=== PATIENT | female | born 1960 | race Caucasian/White ===

== ENCOUNTER 2025-02-11 09:32 | Outpatient (OUT) | payer MEDICARE, SELFPAY ==
--- NOTE | 2025-02-11 10:00 | CA_ITS ---
Patient Name: NITZA SUN MR#: [id number] : 1960 Exam Date: 02/11/2025 Ordering Doctor: DR. JODEE ELAINE M.D. ECHOCARDIOGRAM REPORT PROCEDURE: CA ECHO DOPPLER COMPLETE INDICATIONS: Diastolic congestive heart failure, atrial fibrillation, COPD, hypertension COMPARISON: None. DESCRIPTION: COMPLETE ECHOCARDIOGRAM Real-time transthoracic echocardiography with 2D, M-mode, spectral and color flow Doppler performed. QUALITY: Technical quality was adequate. LEFT VENTRICLE: Normal chamber size. Normal left ventricular wall thickness. LV EF: Global left ventricular systolic function is normal; visually estimated ejection fraction is 55 to 60%. Unable to assess regional wall motion abnormalities. DIASTOLIC: Not adequately assessed due to heart rhythm. ATRIAL SEPTUM: Inadequately seen. LEFT ATRIUM: Severe dilatation. RIGHT ATRIUM: Severe dilatation. RIGHT VENTRICLE: Mild dilatation. Decreased right ventricular systolic function. TRICUSPID VALVE: Normal mobility and thickness. No stenosis with mild regurgitation. Doppler studies reveal mildly (35-45) elevated right sided pressures. RVSP 43 mmHg MITRAL VALVE: Normal mobility and thickness. No evidence of mitral valve stenosis. There is no mitral annular calcification. Trivial mitral regurgitation. AORTIC VALVE: Normal trileaflet appearance. Mildly calcified aortic valve. Normal leaflet mobility. No evidence of aortic valve stenosis. No aortic regurgitation. AORTIC ROOT: Normal diameter and appearance. Ascending aorta is normal in size. PULMONIC VALVE: Normal thickness and mobility. No stenosis. Trivial regurgitation. PERICARDIUM: Anterior free space; trivial effusion versus fat pad. IVC: IVC is dilated (2.4 cm), does not collapse. CONCLUSION: 1. Global left ventricular systolic function is normal; visually estimated ejection fraction is 55 to 60% 2. The right ventricle is mildly dilated with reduced systolic function 3. Severe biatrial dilatation 4. Mild tricuspid regurgitation 5. Mildly elevated right ventricular systolic pressure; RVSP 43 mmHg 6. Anterior free space; trivial effusion versus fat pad Adult Echocardiography Procedure Report Left Ventricle LVEDD (3.7 - 5.6 cm): 4.42 cm LVESD (2.2 - 4.0 cm): 3.29 cm LVIVS thickness (0.6 - 1.2 cm): 0.89 cm LVPW thickness (0.5 - 1.0 cm): 1.03 cm LVOT Max Gradient: 1.77 mm[Hg] LVOT Area (cm2): 0.66 m/s Peak Velocity (LVOT): 0.66 m/s LVOT Diameter 2.07 cm Left Atrium LA Volume Index (2D A2C): 83.77 ml/m2 Left Atrium Systolic Dimension: 3.70 cm Mitral Valve Mitral Valve E-Wave Peak Velocity: 0.87 m/s Right Ventricle Aorta AO Root Diam: 2.71 cm Ascending Ao Diam: 2.68 cm Aortic Valve AoV Area (Peak Igor): 2.19 cm2, 2.19 cm2 Peak Velocity(Antegrade Flow): 1.02 m/s Peak Gradient(Antegrade Flow): 4.19 mm[Hg] Tricuspid Valve Peak Velocity (Regurgitant Flow): 2.25 m/s, 2.65 m/s, 3.00 m/s Pulmonic Valve Peak Velocity: 1.08 m/s Peak Gradient: 5.42 mm[Hg], 5.42 mm[Hg], 3.81 mm[Hg], 4.17 mm[Hg] Right Atrium Right Atrium Systolic Pressure: 83.51 ml, 83.51 ml Dictated by: Mark Moreno M.D. on 02/12/2025 at 15:04 Approved by: Mark Moreno M.D. on 02/12/2025 at 15:07
== END 2025-02-11 09:33 | disposition home or self-care (01) ==
LOC: CARD 09:33
PROVIDERS: PCP Family Medicine; Visit Provider Internal Medicine Cardiovascular Disease
DX: R94.31 Abnormal electrocardiogram [ECG] [EKG] (principal); I48.91 Unspecified atrial fibrillation; I50.32 Chronic diastolic (congestive) heart failure
CPT/HCPCS: 93306

== ENCOUNTER 2025-09-10 11:03 | Outpatient (OUT) | payer MEDICARE, SELFPAY ==
--- OUTSIDE RECORDS SUMMARY | 2025-09-10 11:11 | XMS_ITS | CCD ---
Author Organization [facility] Care Team Providers Care Patient Liaison Name Role Phone MELISSA HALL Attending Unavailab le BEE, COREY BRUNO Referring Unavailable RAFAELMELISSA Dunn Attending Unavailab le BEE, COREY BRUNO Referring Unavailable SESEJAME Attending Unavailable JAME WORLEY Referring Unavailable BEECOREY CALL Primary Care Physician Lillian Lemons Unavailable Unavailable Corey Gamboa MISC, DR CISNEROS Admitting Unavailable MISC, DR CISNEROS Attending Unavailable BEE, DR COREY Delgado Primary Care Unavailable MISC, DR CISNEROS Admitting Unavailable MISC, DR CISNEROS Attending Unavailable BEE, DR COREY Delgado Primary Care Unavailable BEE, DR COREY Delgado Admitting Unavailable BEE, DR COREY Delgado Primary Care Unavailable BEE, DR COREY Delgado Attending Unavailable Bee, DO Corey Delgado. Primary Care Provider MD Jarocho Rice Attending Provider DO Corey Gamboa Attending Provider NONE, XXXX Referring Unavailable MD Sundar Salazar Admitting Unavailable MD Sundar Salazar Attending Unavailable Henrique Madera Attending Unavaila ble NONE, XXXX Referring Unavailable Henrique Madera Admitting Unavaila ble Jayda Perez Admitting Unavailable JustJayda daley Attending Unavailable JustiJayda Referring Unavailable Justi, ACNP Jayda Referring Unavailable Justi, ACNP Jayda Attending Unavailable Justi ACNP Jayda Admitting Unavailable JustiSigridJayda Referring Unavailable JustJayda daley Attending Unavailable Jarocho Rice Attending Unavailab Jraocho Delarosa Admitting Unavailab le Corey Gamboa Primary Care Unavailable Corey Gamboa DO Primary Care Provider Jarocho Rice MD Attending Provider [phone] Corey Gamboa DO Primary Care Provider Corey Gamboa DO Attending Provider Juni Ga Attending Unavailable Juni Ga Admitting Unavailable NONE, XXXX Referring Unavailable Juni Ga Admitting Unavailable NONE, XXXX Referring Unavailable Juni Ga Attending Unavailable Jayda Perez Referring Unavailable Jayda Perez Attending Unavailable Medications Current Medications Medication Drug Class(es) Dates Sig (Normalized) Sig (Original) 8 hr acetaminophen 650 mg extended release oral tablet (3 sources) Start: 03-07-2024 Acetaminophen (Tylenol 8 Hour) 650 mg tablet extended release Active 1300 MG PO Every 8 hours as needed March 07, 2024 12:00am Complies with drug therapy [id number] 200 actuat albuterol 0.09 mg/actuat metered dose inhaler (17 sources) beta2-Adrenergic Agonist Start: 09-22-2024 End: 09-22-2024 take 1 puff(s) by inhalation every four hours as needed for wheezing Albuterol Sulfate 90 mcg/actuation HFA aerosol inhaler Active 2 PUFF INHALATION Every 4 hours as needed for shortness of breath or wheezing 25.5 90 September 22, 2024 2:04pm Complies with drug therapy Start: 02-28-2024 End: 09-22-2024 take 2 puff(s) by inhalation every four hours as needed Albuterol Sulfate 90 mcg/actuation HFA aerosol inhaler Discontinued 2 PUFF INHALATION Every 4 hours February 28, 2024 12:00am September 22, 2024 2:04pm FreeTextSi puffs as needed Inhalation every 4 hrs; Note: Source Status: Refill; Refills: 1; Provider: Bee Delgado Start: 08-02-2016 take 2 puff(s) by in halation every four hours as needed Albuterol Sulfate HFA 108 (90 Base) MCG/ACT 2 puffs as needed Inhalation every 4 hrs for 90 days Jul, Active Start: 08-02-2016 take 2 puff(s) by in halation every four hours as needed Albuterol Sulfate HFA 108 (90 Base) MCG/ACT 2 puffs as needed Inhalation every 4 hrs for 90 days Jul, Active apixaban 5 mg oral tablet (1 source) Factor Xa Inhibitor Start: 09-03-2025 take 1 tablet by mouth once Apixaban (Eliquis) 5 mg tablet Active 5 MG PO Once September 03, 2025 12:00am Complies with drug therapy 120 actuat budesonide 0.16 mg/actuat / formoterol fumarate 0.0045 mg/actuat metered dose inhaler (18 sources) Corticosteroid, beta2-Adrenergic Agonist Start: 09-22-2024 End: 09-22-2024 take 1 puff(s) by inhalation once daily Budesonide-Formot rohan (Symbicort) 160-4.5 mcg/actuation HFA aerosol inhaler Active 2 PUFF INHALATION Daily 30.6 90 September 22, 2024 2:05pm Complies with drug therapy Start: 03-07-2024 End: 09-22-2024 take 1 puff(s) by inhalation once Budesonide-Formoterol (Symbicort) 160-4.5 mcg/actuation HFA aerosol inhaler Discontinued 2 PUFF INHALATION Once March 07, 2024 11:20am September 22, 2024 2:05pm Start: 02-28-2024 End: 03-07-2024 take 1 puff(s) by inhalation twice daily Budesonide-Formoterol (Symbicort) 160-4.5 mcg/actuation HFA aerosol inhaler Discontinued 2 PUFF INHALATION Twice daily February 28, 2024 12:00am March 07, 2024 11:26am Start: 09-13-2022 take 2 puff(s) by in halation twice daily Symbicort 160-4.5 MCG/ACT 2 puffs Inhalation Twice a day for 90 days Aug, Active 24 hr dilTIAZem hydrochloride 120 mg extended release oral capsule (8 sources) Calcium Channel Luana Start: 03-13-2024 diltiazem CD 120 mg/ 24 hours Cap-ER 120 mg = 1 cap(s), Oral, Daily, # 90 cap(s), Refills(s) 3, Pharmacy: [facility], 160, cm, 10/26/23 13:51:00 EST, Height/Length Dosing, 134, kg, 10/26/23 13:51:00 EST, Weight Dosing Start Date: 03/13/24 Status: Ordered Start: 03-07-2024 take 1 capsule by [facility] every twenty-four hours Diltiazem Hcl 120 mg capsule,extended release 24hr Active 120 MG PO March 07, 2024 12:00am Complies with drug therapy Start: 03-07-2024 take 1 capsule by [facility] every twenty-four hours Diltiazem Hcl 120 mg capsule,extended release 24hr Active 120 MG PO March 07, 2024 12:00am Start: 03-07-2024 Diltiazem Hcl Active 120 MG PO March 07, 2024 12:00am Start: 04-24-2023 diltiazem CD 1 20 mg/24 hours Cap-ER 120 mg = 1 cap(s), Oral, Daily, # 90 cap(s), Refills(s) 3, Pharmacy: [facility], 160, cm, 04/11/23 15:37:00 EDT, Height/Length Dosing, 137, kg, 10/18/22 12:02:00 EST, Weight Dosing Start Date: 04/24/23 Status: Ordered escitalopram 20 mg oral tablet (20 sources) Serotonin Reuptake Inhibitor Start: 02-28-2024 End: 06-15-2025 take 1 tablet by mouth once daily Escitalopram Oxalate 20 mg tablet Active 20 MG PO Daily 90 90 June 15, 2025 10:51am Complies with drug therapy Start: 05-12-2019 take 1 tablet by mouth once da nicolasa Lexapro 10 mg Tab 10 mg = 1 tab(s), Oral, Daily Start Date: 05/12/19 Status: Ordered Start: 12-18-2018 take 1 tablet by [facility] every twenty-four hours Lexapro 20 MG 1 tablet Orally Once a day for 90 day(s) Nov, Active ferrous sulfate 325 mg delayed release oral tablet (2 sources) Start: 03-20-2024 take 1 tablet by mouth twice daily Ferrous Sulfate 325 mg (65 mg iron) tablet,delayed release (DR/EC) Active 325 MG PO Twice daily 180 90 March 20, 2024 12:00am Complies with drug therapy Flonase 0.05 mg/inh nasal spray (7 sources) Start: 10-19-2017 Flonase 0.05 m g/inh nasal spray 2 spray(s), Nasal, Daily, Refill(s) 0 Start Date: 10/19/17 Status: Ordered fluticasone propionate 0.05 mg/actuat metered dose nasal spray (16 sources) Corticosteroid Start: 02-28-2024 Fluticasone Propionate 50 mcg/actuation spray,suspension Active 2 SPRAY INTRANASAL Daily as needed February 28, 2024 12:00am Complies with drug therapy Start: 10-19-2017 Flonase 0.05 m g/inh nasal spray 2 spray(s), Nasal, Daily, Refill(s) 0 Start Date: 10/19/17 Status: Ordered Start: 10-08-2017 take 2 spray(s) nasa l route once daily as needed Fluticasone Propionate 50 MCG/ACT 2 spray Nasally Once a day prn for 30 day(s) Sep, Active hydroCHLOROthiazide 12.5 mg oral tablet (20 sources) Thiazide Diuretic Start: 02-28-2024 End: 04-06-2025 take 1 tablet by mouth once daily Hydrochlorothiazide 12.5 mg tablet Active 12.5 MG PO Daily 90 April 06, 2025 2:23pm Complies with drug therapy Start: 10-20-2017 take 1 capsule by mo [facility] once daily hydrochlorothiazide 12.5 mg Cap 12.5 mg = 1 cap(s), Oral, Daily, Refills(s) 0 Start Date: 10/20/17 Status: Ordered Start: 08-03-2014 take 1 tablet by crescencio every twenty-four hours hydroCHLOROthiazide 12.5 MG 1 tablet in the morning Orally Once a day for 90 day(s) Jul, Active 24 hr metoprolol succinate 100 mg extended release oral tablet (20 sources) beta-Adrenergic Luana Start: 09-03-2025 take 1 tablet by mouth every twenty-four hours Metoprolol Succinate 100 mg tablet extended release 24 hr Active 100 MG PO September 03, 2025 12:00am Complies with drug therapy Start: 06-30-2024 take 1 tablet by crescencio th twice daily metoprolol succinate 100 mg ER Tab 100 mg = 1 tab(s), Oral, BID, # 180 tab(s), Refills(s) 3, Pharmacy: [facility], 160, cm, 04/25/24 14:23:00 EDT, Height/Length Dosing, 134, kg, 10/26/23 13:51:00 EST, Weight Dosing Start Date: 06/30/24 Status: Ordered Start: 03-07-2024 End: 09-03-2025 take 1 tablet by mouth twice daily Metoprolol Tartrate 100 mg tablet Discontinued 100 MG PO Twice daily March 07, 2024 11:22am September 03, 2025 1:30pm Start: 02-28-2024 End: 03-07-2024 take 1 tablet by mouth once daily Metoprolol Tartrate 100 mg tablet Discontinued 100 MG PO Daily February 28, 2024 12:00am March 07, 2024 11:26am Start: 06-12-2023 End: 06-06-2024 take 1 tablet by mouth twice daily Toprol XL 100 mg Tab-ER 100 mg = 1 tab(s), Oral, BID, X 90 day(s), # 180 tab(s), Refills(s) 3, Pharmacy: [facility], 160, cm, 04/11/23 15:37:00 EDT, Height/Length Dosing, 137, kg, 10/18/22 12:02:00 EST, Weight Dosing Start Date: 06/12/23 Stop Date: 06/06/24 Status: Ordered Start: 11-11-2021 End: 11-06-2022 take 1 tablet by mouth twice daily Toprol XL 100 mg Tab-ER 100 mg = 1 tab(s), Oral, BID, # 60 tab(s), Refills(s) 0, Pharmacy: [id number], 160, cm, 04/14/22 13:30:00 EDT, Height/Length Dosing, 137, kg, 04/14/22 13:30:00 EDT, Weight Dosing Start Date: 06/12/22 Status: Ordered take 1 tablet by crescencio twice daily at mealtime Metoprolol Tartrate 100 MG 1 tablet with food Orally Twice daily Active Metoprolol Tartr ate 100 MG 1 tablet with food QAM Orally Twice daily Active omeprazole 40 mg delayed release oral capsule (20 sources) Proton Pump Inhibitor Start: 02-28-2024 End: 04-06-2025 take 1 capsule by mouth twice daily Omeprazole 40 mg capsule,delayed release(DR/EC) Active 40 MG PO Twice daily 180 90 April 06, 2025 2:23pm Complies with drug therapy Start: 10-20-2017 take 1 capsule by [facility] once daily omeprazole 40 mg Cap-DR 40 mg = 1 cap(s), Oral, Daily, # 30 cap(s), Refills(s) 0 Start Date: 10/20/17 Status: Ordered Start: 07-29-2014 take 1 capsule by [facility] twice daily Omeprazole 40 MG 1 capsule Orally twice daily for 90 day(s) Jul, Active omeprazole 40 mg Cap-DR (1 source) Start: 10-20-2017 take 1 capsule by mouth once daily omeprazole 40 mg Cap-DR 40 mg = 1 cap(s), Oral, Daily, # 30 cap(s), Refills(s) 0 Start Date: 10/20/17 Status: Ordered microencapsulated potassium chloride 20 meq extended release oral tablet (20 sources) Start: 03-07-2024 End: 04-06-2025 Potassium Chloride (Klor-Con M20) 20 mEq tablet,ER particles/crystals Active 20 MEQ PO Twice daily 180 90 April 06, 2025 2:22pm Complies with drug therapy Start: 02-28-2024 End: 03-07-2024 Potassium Chloride (Klor-Con M20) 20 mEq tablet,ER particles/crystals Discontinued 40 MEQ PO Daily February 28, 2024 12:00am March 07, 2024 11:26am Start: 11-20-2018 take 1 tablet by [facility] twice daily potassium chloride 20 mEq ER Tab 20 mEq = 1 tab(s), Oral, BID, Refills(s) 0 Start Date: 11/20/18 Status: Ordered take 2 tablets by [facility] every twenty-four hours Klor-Con M20 20 MEQ 2 tablet with food Orally Once a day for 90 day(s) Active rivaroxaban 20 mg oral tablet (2 sources) Factor Xa Inhibitor Start: 10-26-2023 take 1 tablet by mouth once daily in the evening Xarelto 20 mg oral tablet 20 mg, Oral, qPM, AFIB and CrCl over 50 mL/minute - Take with evening meal, # 90 tab(s), Refills(s) 1, Pharmacy: [facility], 160, cm, 10/26/23 13:51:00 EST, Height/Length Dosing, 134, kg, 10/26/23 13:51:00 EST, Weight Dosing Start Date: 10/26/23 Status: Ordered spironolactone 25 mg oral tablet (20 sources) Aldosterone Antagonist Start: 09-22-2024 take 0.5 tablet by mouth once daily spironolactone 25 mg Tab See Instructions, 0.5 tab by mouth daily, # 45 tab(s), Refills(s) 3, Pharmacy: [facility], 160, cm, 04/25/24 14:23:00 EDT, Height/Length Dosing, 134, kg, 10/26/23 13:51:00 EST, Weight Dosing Start Date: 09/22/24 Status: Ordered Start: 02-28-2024 Spironolactone 25 mg tablet Active 12.5 MG PO Daily February 28, 2024 12:00am Complies with drug therapy Start: 02-28-2024 take 12.5 mg by mout h once daily Spironolactone Active 12.5 MG PO Daily February 28, 2024 12:00am Start: 09-18-2023 End: 09-12-2024 take 0.5 tablet by mouth once daily spironolactone 25 mg Tab 0.5 tab, Oral, Daily, X 90 day(s), # 45 tab(s), Refills(s) 3, Pharmacy: [facility], 160, cm, 04/11/23 15:37:00 EDT, Height/Length Dosing, 137, kg, 10/18/22 12:02:00 EST, Weight Dosing Start Date: 09/18/23 Stop Date: 09/12/24 Status: Ordered Start: 11-11-2021 End: 06-07-2023 take 0.5 tablet by mouth once daily spironolactone 25 mg Tab 0.5 tab, Oral, Daily, 12.5 mg, X 90 day(s), # 90 tab(s), Refills(s) 3, Pharmacy: [facility] (Now [facility]), 160, cm, 04/14/22 13:30:00 EDT, Height/Length Dosing, 137, kg, 04/14/22 13:30:00 EDT, Weight Dosing Start Date: 06/12/22 Stop Date: 06/07/23 Status: Ordered Symbicort 160/4.5 inhalation aerosol with adapter (5 sources) Start: 10-26-2023 take 2 puff(s) by inhalation twice daily Symbicort 160/4.5 inhalation aerosol with adapter 2 puff(s), Inhalation, BID, Refill(s) 0 Start Date: 10/26/23 Status: Ordered Ventolin HFA 90 mcg/inh Aerosol (10 sources) Start: 12-25-2017 Ventolin HFA 9 0 mcg/inh Aerosol See Instructions, Refill(s) 0, 1 puff(s) Inhalation Start Date: 12/25/17 Status: Ordered warfarin sodium 2.5 mg oral tablet (20 sources) Vitamin K Antagonist Start: 03-07-2024 take 1 tablet by mouth once daily Warfarin 2.5 mg tablet Active 2.5 MG PO Daily March 07, 2024 12:00am Complies with drug therapy Start: 06-26-2023 End: 03-07-2024 take 1 tablet by mouth once daily, then take 0.5 tablet by mouth once daily Warfarin 5 mg tablet Discontinued 5 MG PO Daily February 28, 2024 12:00am March 07, 2024 11:25am 1 tablet Wed and sun, 1/2 tablet all other days Oral Once a day; Taking 2.5 mg mon, tu, th, sun sat, 5 mg sun and wed; Start: 12-14-2020 Coumadin 5 mg Tab See Instructions, take 2.5mg everyday, # 90 tab(s), Refills(s) 2, Pharmacy: [facility], 160, cm, 10/26/23 13:51:00 EST, Height/Length Dosing, 134, kg, 10/26/23 13:51:00 EST, Weight Dosing Start Date: 12/25/23 Status: Ordered Start: 05-12-2019 Coumadin Start Date: 05/12/19 Status: Ordered Warfarin Sodium 5 MG 1/2 tablet sun-thur 1 tablet fri-sun Oral Once a day for 30 days Active take 1 tablet by crescencio th every twenty-four hours Warfarin Sodium 2.5 MG 1 tablet Oral Once a day for 30 Active Completed/Discontinued Medications Medication Drug Class(es) Dates Sig (Normalized) Sig (Original) Adult Blood Pressure Machine with Large Bicep Cuff (10 sources) Start: 01-07-2020 Adult Blood Pressure Machine with Large Bicep Cuff Adult Blood Pressure Machine with Large Bicep Cuff, See Instructions, 1 EA, 0, Adult BP machine and large bicep cuff Follow daily BP readings and keep log, [facility], 160, cm, 12/23/19 11:18:00 EST, Height/Length Measured, 140, kg, 12/23/19 11:18:00 EST, Weight Measured Start Date: 01/07/20 Status: Ordered Start: 01-07-2020 Adult Blood Pr essure Machine with Large Bicep Cuff Adult Blood Pressure Machine with Large Bicep Cuff, See Instructions, 1 EA, 0, Adult BP machine and large bicep cuff Follow daily BP readings and keep log, [facility], Supply, 160, cm, 12/23/19 11:18:00 EST, Height/Length Measured, 140, kg... Start Date: 01/07/20 Status: Ordered busPIRone hydrochloride 30 mg oral tablet (20 sources) Start: 02-28-2024 End: 09-03-2024 take 1 tablet by mouth twice daily Buspirone 30 mg tablet Discontinued 30 MG PO Twice daily February 28, 2024 12:00am September 03, 2024 1:02pm Start: 12-03-2019 busPIRone 15 m g Tab Refills(s) 0 Start Date: 12/03/19 Status: Ordered take 1 tablet by crescencio every twelve hours busPIRone HCl 30 MG 1 tablet Orally Twice a day Active docusate sodium 100 mg oral capsule (13 sources) Start: 02-28-2024 End: 03-07-2024 take 1 capsule by mouth three times daily Docusate Sodium 100 mg capsule Discontinued 100 MG PO Three times daily February 28, 2024 12:00am March 07, 2024 11:25am take 1 capsule by mo [facility] every eight hours Colace 100 mg 1 capsule as needed Orally Three times a day OTC Not-Taking furosemide 40 mg oral tablet (20 sources) Loop Diuretic Start: 10-26-2023 End: 04-06-2025 take 1 tablet by mouth twice daily Furosemide (Lasix) 40 mg tablet Discontinued 40 MG PO Twice daily February 28, 2024 12:00am March 13, 2024 11:32am Start: 04-14-2022 End: 06-07-2023 take 1 tablet by mouth twice daily furosemide 40 mg Tab 40 mg = 1 tab(s), Oral, BID, X 90 day(s), # 180 tab(s), Refills(s) 3, Pharmacy: [facility] (Now [facility]), 160, cm, 04/14/22 13:30:00 EDT, Height/Length Dosing, 137, kg, 04/14/22 13:30:00 EDT, Weight Dosing Start Date: 06/12/22 Stop Date: 06/07/23 Status: Ordered lamoTRIgine 100 mg oral tablet (20 sources) Mood Stabilizer, Anti-epileptic Agent Start: 02-28-2024 End: 09-03-2024 take 1 tablet by mouth once daily at bedtime Lamotrigine 100 mg tablet Discontinued 100 MG PO Daily at bedtime February 28, 2024 12:00am September 03, 2024 1:02pm Start: 02-28-2024 End: 09-03-2024 take 1 tablet by mouth once daily Lamotrigine 200 mg tablet Discontinued 200 MG PO Daily February 28, 2024 12:00am September 03, 2024 1:02pm Start: 10-26-2023 take 3 tablets by mo [facility] once daily lamotrigine 100 mg Tab 300 mg = 3 tab(s), Oral, Daily, Refills(s) 0 Start Date: 10/26/23 Status: Ordered take 1 tablet by crescencio once daily at bedtime lamoTRIgine 100 MG 1 tablet Orally Once daily at bedtime with 200 mg tab to make 300mg for 90 day(s) Active take 1 tablet by crescencio th once daily lamoTRIgine 200 MG 1 tablet Orally Once a day with 100 mg tab to make 300 mg Active traZODone hydrochloride 100 mg oral tablet (20 sources) Serotonin Reuptake Inhibitor Start: 02-28-2024 End: 09-03-2024 take 3 tablets by mouth once daily at bedtime Trazodone 100 mg tablet Discontinued 100 MG PO Daily at bedtime March 07, 2024 11:21am September 03, 2024 1:04pm FreeTextSi tablets at bedtime Orally Once a day; Note: Source Status: Taking; Refills: 1; Qty: 270 Tablet; Provider: Bee Delgado Start: 10-26-2023 traZODONE 100 mg Tab Refills(s) 0 Start Date: 10/26/23 Status: Ordered Start: 06-12-2019 traZODONE 100 mg Tab 200 mg = 2 tab(s), Oral, Refills(s) 0 Start Date: 12/03/19 Status: Ordered Start: 06-12-2019 take 3 tablets by mo ut every twenty-four hours traZODone HCl 100 MG 3 tablets at bedtime Orally Once a day for 90 days May, Active Problems Active Problems Problem Classification Problem Date Documented Date Episodic/Chronic Anxiety disorders (14 sources) Anxiety; Translations: [Anxiety disorder, unspecified] Chronic Cardiac dysrhythmias (20 sources) Atrial fibrillation; Translations: [Unspecified atrial fibrillation] Onset: 10-18-2022 Chronic Chronic obstructive pulmonary disease and bronchiectasis (11 sources) Emphysematous bronchitis; Translations: [Chronic obstructive pulmonary disease, unspecified] Chronic Conditions associated with dizziness or vertigo (20 sources) Meniere's disease; Translations: [Meniere's disease, right ear] 07-16-2014 Chronic Conditions associated with dizziness or vertigo (10 sources) Benign paroxysmal positional vertigo; Translations: [Benign paroxysmal vertigo, right ear] Episodic Congestive heart failure; nonhypertensive (18 sources) Chronic diastolic heart failure; Translations: [Chronic diastolic (congestive) heart failure] Onset: 10-18-2022 12-03-2019 Chronic Comment on above: Acute Esophageal disorders (16 sources) Gastroesophageal reflux disease without esophagitis; Translations: [Gastro-esophageal reflux disease without esophagitis] Onset: 06-06-2022 Resolved: 06-06-2022 Chronic Essential hypertension (13 sources) Hypertensive disorder; Translations: [Essential hypertension] Onset: 10-31-2024 12-03-2019 Chronic Heart valve disorders (14 sources) Tricuspid incompetence, non-rheumatic ; Translations: [Nonrheumatic tricuspid (valve) insufficiency] Onset: 04-07-2025 11-08-2018 Chronic Hypertension with complications and secondary hypertension (1 source) Hypertensive heart failure; Translations: [Hypertensive heart disease with heart failure] Chronic Miscellaneous mental health disorders (10 sources) Primary insomnia; Translations: [Primary insomnia] Chronic Mood disorders (3 sources) Depressive disorder; Translations: [Depression] 03-08-2024 Chronic Other aftercare (4 sources) Drug monitoring done; Translations: [Encounter for therapeutic drug level monitoring] Episodic Other aftercare (5 sources) Long-term current use of anticoagulant; Translations: [FPC (current) use of anticoagulants] Onset: 10-31-2024 Episodic Other aftercare (1 source) FPC (current) use of inhaled steroids; Translations: [FPC (current) use of inhaled steroids] Episodic Other aftercare (1 source) Long-term current use of drug therapy; Translations: [Other predatory animal exterminator (current) drug therapy] Episodic Other diseases of veins and lymphatics (4 sources) Lymphedema, not elsewhere classified; Translations: [LYMPHEDEMA NOT ELSEWHERE CLASSIFIED] Onset: 03-01-2023 Chronic Other lower respiratory disease (1 source) Shortness of breath Episodic Other non-traumatic joint disorders (1 source) Stiffness of right hand, not elsewhere classified; Translations: [Stiffness of joint, not elsewhere classified, hand] 04-06-2025 Episodic Other nutritional; endocrine; and metabolic disorders (12 sources) Morbid obesity 07-16-2014 Chronic Residual codes; unclassified (12 sources) Tobacco user 11-20-2012 Episodic Comment on above: Added secondary to s ocial history documentation. Residual codes; unclassified (10 sources) Difficulty sleeping ; Translations: [Sleep disorder, unspecified] Episodic Screening and history of mental health and substance abuse codes (1 source) Personal history of nicotine dependence Episodic Substance-related disorders (13 sources) Smoker; Translations: [Nicotine dependence] 07-16-2014 Chronic Comment on above: Added secondary to d ocumentation in Social History. Unclassified (1 source) Chronic atrial fibrillation, unspecified; Translations: [CHRONIC ATRIAL FIBRILLATION UNSPEC] Onset: 01-22-2023 Past or Other Problems Problem Classification Problem Date Documented Da te Episodic/Chronic Headache; including migraine (1 source) Headache; including migraine Results Test Name Value Interpretation Reference Range Facility Heart and Vascular Office/Cl inic Noteon 10-10-2025 Heart and Vascular Office/Clinic Note [facility] Office/Clinic Note Chief Complaint 5 month follow up History of Present Illness Claudia Khoury is a 65-year-old female with past medical history positive for chronic diastolic congestive heart failure, chronic atrial fibrillation with rate control strategy anticoagulated with warfarin. Pt also has a hx of hypertension. She is a reformed smoker. She has no known coronary disease, remote negative stress. She has normal LV function. She has hx of pulmonary hypertension. Patient comes in for 5-month follow-up today. Patient comes in with her who provides most of the history today. Reviewed prior echo. At last visit, I saw patient at which time warfarin was discontinued and Eliquis 5 mg twice daily was started. Patient reports that she is stable from a cardiac standpoint since last visit. Patient reports that she has been taking and tolerating the Eliquis well and they have been able to afford it. Patient is compliant with all medications for A-fib including diltiazem, metoprolol, Eliquis for anticoagulation. She is in persistent A-fib, but does not have any significant heart palpitations or shortness of breath. Patient also has a history of diastolic heart failure most recent echo showed EF of 55 to 60% in 01/2025. She does have an ongoing swelling to her lower extremities but is usually controlled by her current medication regimen of Lasix 40 mg twice daily, HCTZ 12.5 mg daily, spironolactone 12.5mg QD. Patient blood pressure is on the low side of normal in the office today. She is currently taking Lasix, HCTZ, metoprolol, diltiazem, spironolactone that would effect on her blood pressure. Patient reports she is not having really any issues with dizziness or lightheadedness and her blood pressure is not usually quite as low. Patient reports that she does not believe she has had any labs since 02/2024 and GFR was 47 at that time per patient's . REVIEWED PRIOR NOTE FROM 04/07/2025: Patient comes in for 6-month follow-up today. Patient comes in with her who provides most of the history today. Reviewed prior echo. At last visit, patient saw Dr. Salazar at which time she was continued on current medications and an order for echo was placed. Patient's reports that they did get echo done about 2 weeks ago at [facility], but I do not see results in the chart at this time. Patient reports that she is stable from a cardiac standpoint since last visit other than she has concerns about her INR. Patient's reports that they have been having to drive every 2 weeks to recheck her INR and it has been up and down and hard to remain stable. Even with a consistent diet and consistent medications, her INR continues to be quite variable. Patient would like to change to Eliquis. Patient is compliant with all medications for A-fib including diltiazem, metoprolol, warfarin for anticoagulation. She is in persistent A-fib, but does not have any significant heart palpitations or shortness of breath. Patient also has a history of diastolic heart failure most recent echo showed EF of 55 to 60% in 11/2019. She does have an ongoing swelling to her lower extremities but is usually controlled by her current medication regimen of Lasix 40 mg twice daily, HCTZ 12.5 mg daily, spironolactone 12.5mg QD. Patient blood pressure is on the low side of normal in the office today. She is currently taking Lasix, HCTZ, metoprolol, diltiazem, spironolactone that would effect on her blood pressure. Patient reports she is not having really any issues with dizziness or lightheadedness and her blood pressure is not usually quite as low. She delivered earlier this morning and is in the 120s/70s range. Review of Systems ROS - Provider Constitutional: no fever, no chills, no sweats, no weakness Respiratory: no shortness of breath, no cough Cardiovascular: no chest pain, positive for swelling to lower extremities Neuro: no dizziness. no loss of consciousness Physical Exam Vitals & Measurements HT: 63 in HT: 160 cm WT: 259.925 lb WT: 117.9 kg BMI: 46.05 General: alert, no acute distress Cardiovascular: regular rate and rhythm, no murmur normal peripheral perfusion Respiratory: Lungs CTAB, respirations non labored Extremities: no edema left lower extremity. no edema right lower extremity Neurological: oriented x 4, LOC appropriate for age, speech normal Skin: Warm, dry, intact- no rash or concerning lesions Cardiac Diagnostics Transthoracic echocardiogram from 02/11/2025: Conclusion: 1. Global left ventricular systolic function is normal; visually estimated ejection fraction is 55-60%. 2. The right ventricle is mildly dilated with reduced systolic function. 3. Severe biatrial dilation. 4. Mild tricuspid regurgitation. 5. Mildly elevated right ventricular systolic pressure; RVSP 43 mmHg. 6. Anterior free space; trivial effusion versus fat pad (12/08/2019 08:56 EST Echo Transthoracic Complete) IMPRESSION/SUMMARY: 1. Normal (more content not included)... Normal [facility] Comment on above: Result Comment: Elec tronically Signed By: Juni Ga PA-C\.br\Date and Time Signed: 09/04/25 11:27 EDT Office/Clinic Note-Nurseon 0 04-09-2025 Office/Clinic Note-Nurse Office/Clinic Note-Nurse Patient: CLAUDIA KHOURY Age: 64 years Sex: Female : 1960 Associated Diagnoses: None Author: Irina Tolbert RN Impression and Plan Patients called to schedule her appt in the clinic and will no longer be a patient in the clinic as she is now on Eliquis. Normal [facility] Comment on above: Result Comment: Elec tronically Signed By: Irina Tolbert RN\.br\Date and Time Signed: 04/09/25 14:24 EDT Heart and Vascular Office/Cl inic Noteon 04-07-2025 Heart and Vascular Office/Clinic Note Heart and Vascular Office/Clinic Note Chief Complaint 6 month F/U History of Present Illness Claudia Khoury is a 64-year-old female with past medical history positive for chronic diastolic congestive heart failure, chronic atrial fibrillation with rate control strategy anticoagulated with warfarin. Pt also has a hx of hypertension. She is a reformed smoker. She has no known coronary disease, remote negative stress. She has normal LV function. She has hx of pulmonary hypertension. Patient comes in for 6-month follow-up today. Patient comes in with her who provides most of the history today. Reviewed prior echo. At last visit, patient saw Dr. Salazar at which time she was continued on current medications and an order for echo was placed. Patient's reports that they did get echo done about 2 weeks ago at [facility], but I do not see results in the chart at this time. Patient reports that she is stable from a cardiac standpoint since last visit other than she has concerns about her INR. Patient's reports that they have been having to drive every 2 weeks to recheck her INR and it has been up and down and hard to remain stable. Even with a consistent diet and consistent medications, her INR continues to be quite variable. Patient would like to change to Eliquis. Patient is compliant with all medications for A-fib including diltiazem, metoprolol, warfarin for anticoagulation. She is in persistent A-fib, but does not have any significant heart palpitations or shortness of breath. Patient also has a history of diastolic heart failure most recent echo showed EF of 55 to 60% in 11/2019. She does have an ongoing swelling to her lower extremities but is usually controlled by her current medication regimen of Lasix 40 mg twice daily, HCTZ 12.5 mg daily, spironolactone 12.5mg QD. Patient blood pressure is on the low side of normal in the office today. She is currently taking Lasix, HCTZ, metoprolol, diltiazem, spironolactone that would effect on her blood pressure. Patient reports she is not having really any issues with dizziness or lightheadedness and her blood pressure is not usually quite as low. She delivered earlier this morning and is in the 120s/70s range. Review of Systems PHQ Score Initial Depression Screen Score: 0 SCORE ROS - Provider Constitutional: no fever, no chills, no sweats, no weakness Respiratory: no shortness of breath, no cough Cardiovascular: no chest pain, positive for swelling to lower extremities Neuro: no dizziness. no loss of consciousness Physical Exam Vitals & Measurements HR: 95(Peripheral) RR: 18 BP: 98/65 SpO2: 96% HT: 63 in HT: 160 cm WT: 273.373 lb WT: 124 kg BMI: 48.44 General: alert, no acute distress Cardiovascular: regular rate and rhythm, no murmur normal peripheral perfusion Respiratory: Lungs CTAB, respirations non labored Extremities: Trace edema left lower extremity. Trace edema right lower extremity Neurological: oriented x 4, LOC appropriate for age, speech normal Skin: Warm, dry, intact- no rash or concerning lesions Cardiac Diagnostics (12/08/2019 08:56 EST Echo Transthoracic Complete) IMPRESSION/SUMMARY: 1. Normal LV systolic function with a moderate concentric left ventricular hypertrophy with estimated LVEF of 55-60%. 2. Severe left atrial enlargement. 3. Mild right atrial enlargement. 4. Trace mitral regurgitation. 5. Moderate tricuspid regurgitation with mildly elevated RVSP of 40-45 mm Hg. 6. Aortic valve sclerosis without significant stenosis. [1] Assessment/Plan 1. Persistent atrial fibrillation (I48.19: Other persistent atrial fibrillation) Patient has persistent atrial fibrillation. She declines EKG in the office today. Based on physical exam, patient is in atrial fibrillation with a controlled heart rate at 95 bpm. Patient is currently taking diltiazem 120 mg ER daily and metoprolol 100 mg ER twice daily for rate control and warfarin per Coumadin clinic guidelines for anticoagulation. However, patient's Coumadin level has been up and down significantly recently and has had needed many medication adjustments. Due to this, patient and would like warfarin changed to Eliquis. Will make this change and have patient take Eliquis 5 mg twice daily have her continue with current doses of diltiazem and metoprolol. Ordered: apixaban, 5 mg = 1 tab(s), Oral, BID, # 180 tab(s), Refills(s) 3, Pharmacy: [facility], 160, cm, 04/07/25 10:55:00 EDT, Height/Length Dosing, 124, kg, 04/07/25 11:08:00 EDT, Weight Dosing 2. Diastolic heart failure (I50.32: Chronic diastolic (congestive) heart failure) Patient has history of diastolic heart failure. Minimal swelling to lower extremities at this time, but she does usually have some. Most recent EF was normal at 55 to 60% based on echo in 11/2019. However, patient reports that she recently had an echo done at [facility] about 2 weeks ago and we will obtain these results. Patient is (more content not included)... Normal [facility] Comment on above: Result Comment: Elec tronically Signed By: Sury SHER, Juni Jimenez\.chelo\Date and Time Signed: 04/07/25 12:20 EDT POCT PT/INRon 02-17-2025 POCT INR 2.1 High .7-1.2 [facility] Comment on above: Performed By: #### 2 [id number] #### [facility] [address] [place] [address] POCT PT 22.6 second(s) High 8.0-15.[address] [facility] Comment on above: Performed By: #### 2 [id number] #### [facility] [address] [place] [address] POCT PT/INRon 01-20-2025 POCT INR 2.3 High .7-1.2 [facility] Comment on above: Performed By: #### 2 [id number] #### [facility] [address] [place] [address] POCT PT 24.7 second(s) High 8.0-15.[address] [facility] Comment on above: Performed By: #### 2 [id number] #### [facility] [address] [place] [address] POCT PT/INRon 01-06-2025 POCT INR 3.4 High .7-1.2 [facility] Comment on above: Performed By: #### 2 [id number] #### [facility] [address] [place] [address] POCT PT 34.7 second(s) High 8.0-15.[address] [facility] Comment on above: Performed By: #### 2 [id number] #### [facility] [address] [place] [address] POCT PT/INRon 01-02-2025 POCT INR 6.8 Abnormal .7-1.2 [facility] Comment on above: Performed By: #### 2 [id number] #### [facility] [address] [place] [address] POCT PT 62.5 second(s) Abnormal 8.0-15.[address] [facility] Comment on above: Performed By: #### 2 [id number] #### [facility] [address] [place] [address] POCT PT/INRon 12-23-2024 POCT INR 4.0 High .7-1.2 [facility] Comment on above: Performed By: #### 2 [id number] #### [facility] [address] [place] [address] POCT PT 39.5 second(s) High 8.0-15.[address] [facility] Comment on above: Performed By: #### 2 [id number] #### [facility] [address] [place] [address] POCT PT/INRon 12-02-2024 POCT INR 3.1 High .7-1.2 [facility] Comment on above: Performed By: #### 2 [id number] #### [facility] [address] [place] [address] POCT PT 32.5 second(s) High 8.0-15.[address] [facility] Comment on above: Performed By: #### 2 [id number] #### [facility] [address] [place] [address] Heart and Vascular Office/Cl inic Noteon 10-31-2024 Heart and Vascular Office/Clinic Note Heart and Vascular Office/Clinic Note Chief Complaint 6 month f/u History of Present Illness Claudia Khoury is a pleasant 64-year-old female, former patient of Dr. Madera with past medical history positive for chronic diastolic congestive heart failure, chronic atrial fibrillation with rate control strategy anticoagulated with warfarin, hypertension. She is a reformed smoker. She has no known coronary disease, remote negative stress. She has normal LV function. She has some pulmonary hypertension. Here today for routine follow-up. She is doing well without any new cardiac complaints. She has chronic shortness of breath with exertion as well as chronic lymphedema both of which are stable. She denies any cardiovascular related symptoms, including chest pain, palpitations. She denies any dizziness, near syncope. She is currently on warfarin for cardioembolic protection. I was unable to locate prior echocardiographic report in the chart. Review of Systems ROS - Provider Constitutional: no fever, no chills, no fatigue Skin:no rash, no lesions ENMT: no ear pain, no sore throat, no congestion. Respiratory: no shortness of breath, no cough, no wheezing. Cardiovascular: no chest pain, no palpitations, no edema. Gastrointestinal: no nausea, no vomiting, no diarrhea, no GI bleeding. Genitourinary: no dysuria, no frequencyno hematuria Musculoskeletal: no back pain, no trauma. Neurologic: no headache, no dizziness, no numbness, no weakness. Psychiatric: no sleeping problems, no irritability, no mood swings/depression. Heme/Lymph: no bleeding tendency, no bruising tendency, no petechiae, Allergy/Immuno logic: no seasonal allergies, no food allergies, no recurrent infections Physical Exam Vitals & Measurements HR: 47(Peripheral) RR: 16 BP: 112/72 SpO2: 94% HT: 63 in HT: 160 cm WT: 130 kg WT: 286.601 lb BMI: 50.78 General: alert, no acute distress Neck: Supple, noJVD nocarotid bruit Cardiovascular: irregularly-irregular rate and rhythm, no murmur normal peripheral perfusion Respiratory: Lungs CTAB, respirations non labored Extremities: no edema left lower extremity. no edema right lower extremity Neurological: oriented x 4, LOC appropriate for age, speech normal Skin: Warm, dry, intact- no rash or concerning lesions Assessment/Plan 1. Afib (I48.91: Unspecified atrial fibrillation) Chronic atrial fibrillation. Rate appears to be well-controlled. On warfarin for anticoagulation. Ordered: ECG 12 Lead Adult 2. Diastolic heart failure (I50.32: Chronic diastolic (congestive) heart failure) Appears euvolemic by physical exam. I am going to update a transthoracic echocardiogram. 3. HTN - Hypertension (I10: Essential (primary) hypertension) Blood pressure is well-controlled 4. 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 I discussed an option of referral for a Watchman device, given predisposition to falls. The patient's is telling me that he would be doing some research and that. Follow-up No qualifying data available 1 year Problem List/Past Medical History Ongoing Diastolic heart failure Extreme obesity 28-MAY-2014 12:48:08<$> HTN - Hypertension Smoker 28-MAY-2014 12:37:00<$> Tricuspid insufficiency, non-rheumatic Historical Meniere syndrome Procedure/Surgical History Arthroscopy of knee (2000), Ankle, Rotator cuff repair, Tonsillectomy, Wrist. Medications Adult Blood Pressure Machine with Large Bicep Cuff, See Instructions Coumadin Coumadin 5 mg Tab, See Instructions, 2 refills Coumadin 5 mg Tab, See Instructions, 1 refills Coumadin 5 mg Tab, See Instructions, 2 refills Coumadin 5 mg Tab, 2.5 mg= 0.5 tab(s), Oral, Daily, 1 refills diltiazem CD 120 mg/24 hours Cap-ER, 120 mg= 1 cap(s), Oral, Daily, 3 refills Flonase 0.05 mg/inh nasal spray, 2 spray(s), Nasal, Daily furosemide 40 mg Tab hydrochlorothiazide 12.5 mg Cap, 12.5 mg= 1 cap(s), Oral, Daily Lexapro 10 mg Tab, 10 mg= 1 tab(s), Oral, Daily metoprolol succinate 100 mg ER Tab, 100 mg= 1 tab(s), Oral, BID, 3 refills omeprazole 40 mg Cap-DR, 40 mg= 1 cap(s), Oral, Daily potassium chloride 20 mEq ER Tab, 20 mEq= 1 tab(s), Oral, BID spironolactone 25 mg Tab, See Instructions spironolactone 25 mg Tab, See Instructions, 3 refills Symbicort 160/4.5 inhalation aerosol with adapter, 2 puff(s), Inhalation, BID Ventolin HFA 90 mcg/inh Aerosol, See Instructions Allergies No Known Allergies Social History Alcohol - Denies Alcohol Use, 11/20/2012 Substance Abuse - Denies Substance Abuse, 11/20/2012 Tobacco - No Risk, 04/11/2023 Former smoker, quit more than 30 days ago Tobacco Use:. Never Smokeless Tobacco Use:. Cigarettes, Household tobacco concerns: No., 04/25/2024 Family History Acute myocardial infarction: Sister. Alcoholism: Mother and Father. Asthma: Mother. Cardiac arrhythmia: Father. Congenital heart disease: Father. (more content not included)... Normal [facility] Comment on above: Result Comment: Elec tronically Signed By: Marie MEDINA, Sundar York\.br\Date and Time Signed: 10/31/24 12:16 EST COAGULATIONOrdered By: Khadijah Farah on 10-07-2024 INR Coag (Bld) [Relative time] 2.1 {INR} High 0.7 - 1.2 [facility] Work Phone: POCT PT 23.3 s High 8 - 15 second(s) [facility] Work Phone: CHEMISTRYOrdered By: Lab ROP User on 09-09-2024 INR Coag (Bld) [Relative time] 2.7 {INR} High 0.7 - 1.2 [facility] POC Subsection POC Device SN [id number] Invalid Interpretation Code [facility] POC Subsection POC User ID [id number] 1 Invalid Interpretation Code [facility] POC Subsection POC Username IRINA TOLBERT Invalid Interpretation Code [facility] POC Subsection POCT PT 28.3 s High 8.0 - 15.0 second(s) [facility] POC Subsection COAGULATIONOrdered By: Shaun Tolbert on 09-09-2024 INR Coag (Bld) [Relative time] 2.7 {INR} High 0.7 - 1.2 [facility] Work Phone: POCT PT 28.3 s High 8 - 15 second(s) [facility] Work Phone: POCT PT/INRon 09-09-2024 POCT INR 2.7 High .7-1.2 [facility] Comment on above: Performed By: #### 2 [id number] #### [facility] [address] [place] [address] POCT PT 28.3 second(s) High 8.0-15.[address] [facility] Comment on above: Performed By: #### 2 [id number] #### [facility] [address] [place] [address] CHEMISTRYOrdered By: Lab ROP User on 08-26-2024 POC Device SN [id number] Invalid Interpretation Code [facility] POC Subsection POC User ID [id number] 1 Invalid Interpretation Code [facility] POC Subsection POC Username GREG DE SANTIAGO Invalid Interpretation Code [facility] POC Subsection POC Device SN [id number] Invalid Interpretation Code [facility] POC Subsection POC User ID [id number] 1 Invalid Interpretation Code [facility] POC Subsection POC Username GREG DE SANTIAGO Invalid Interpretation Code [facility] POC Subsection POCT PT/INRon 08-26-2024 POCT INR 4.0 High .7-1.2 [facility] Comment on above: Performed By: #### 2 [id number] #### [facility] [address] [place] [address] POCT PT 40.1 second(s) High 8.0-15.[address] [facility] Comment on above: Performed By: #### 2 [id number] #### [facility] [address] [place] [address] POCT INR 4.2 High .7-1.2 [facility] Comment on above: Performed By: #### 2 [id number] #### [facility] [address] [place] [address] POCT PT 42.0 second(s) High 8.0-15.[address] [facility] Comment on above: Performed By: #### 2 [id number] #### [facility] [address] [place] [address] POCT PT/INRon 07-15-2024 POCT INR 2.8 High .7-1.2 [facility] Comment on above: Performed By: #### 2 [id number] #### [facility] [address] [place] [address] POCT PT 28.8 second(s) High 8.0-15.[address] [facility] Comment on above: Performed By: #### 2 [id number] #### [facility] [address] [place] [address] POCT PT/INRon 06-13-2024 POCT INR 2.8 High .7-1.2 [facility] Comment on above: Performed By: #### 2 [id number] #### [facility] [address] [place] [address] POCT PT 28.8 second(s) High 8.0-15.[address] [facility] Comment on above: Performed By: #### 2 [id number] #### [facility] [address] [place] [address] POCT PT/INR POCT INR No clot or console d Invalid Interpretation Code [facility] POCT PT/INR POCT PT No clot or console d Invalid Interpretation Code [facility] POCT PT/INRon 05-23-2024 POCT INR 3.1 High .7-1.2 [facility] Comment on above: Performed By: #### 2 [id number] #### [facility] [address] [place] [address] POCT PT 30.7 second(s) High 8.0-15.[address] [facility] Comment on above: Performed By: #### 2 [id number] #### [facility] [address] [place] [address] Heart and Vascular Office/Cl inic Noteon 04-28-2024 Heart and Vascular Office/Clinic Note Chief Complaint 6 month follow up History of Present Illness Claudia Khoury is a 63-year-old female presents to the office for a 6-month follow-up visit. She is accompanied by an adult male. The patient denies chest pain and trouble breathing. She reports edema in the fingers or hands, which she attributes to arthritis and normal fluid retention. She also experiences shortness of breath due to COPD, which occurs with activities such as walking and bending. Her EKG shows an abnormal rhythm. She is not on Xarelto. She takes warfarin. Previously, she considered trying Xarelto, but even with her insurance, the cost was $400, which she cannot afford. She undergoes a finger prick blood test every 6 to 8 weeks. Review of Systems PHQ Score Initial Depression Screen Score: 0 SCORE Constitutional: no fever, no sweats, no weakness Skin: no rash, no lesions, no bruising/petechiae ENMT: no sore throat, no congestion, no hoarseness Respiratory: Positive for shortness of breath, no cough, no orthopnea, no wheezing Cardiovascular: no chest pain, no palpitations, Gastrointestinal: no nausea, no vomiting, no diarrhea, no GI bleeding Genitourinary: no anuria/oliguria no hematuria Musculoskeletal: no back pain, no trauma. Positive for edema in the fingers or hands. Neurologic: no headache, no dizziness, no numbness, no weakness Psychiatric: no sleeping problems, no irritability, no anxiety/depression. Heme/Lymph: no bleeding tendency, no bruising tendency Allergy/Immunologic: no recurrent infections, no impaired immunity Additional ROS info: Except as noted in the above Review of Systems and in the History of Present Illness all other systems have been reviewed and are negative or noncontributory Physical Exam Vitals & Measurements HR: 74(Peripheral) BP: 114/72 SpO2: 93% HT: 63 in HT: 160 cm General: alert, no acute distress Skin: warm, dry intact Head: atraumatic, normocephalic Neck: trachea midline, no JVD, no bruit Eye: normal conjunctiva, sclera clear ENMT: oral mucosa moist Cardiovascular: regular rate and rhythm, no murmur, normal peripheral perfusion Respiratory: lungs CTA, respirations non labored Chest wall: no deformity. Gastrointestinal: soft, non-distended, no tenderness, no guarding. Back: no tenderness, normal ROM, normal alignment. Extremities: no edema, no deformity, no trauma Neurological: oriented x 4, LOC appropriate for age, sensation equal & normal bilaterally, speech normal Psychiatric: cooperative, affect appropriate for age, normal judgement, normal psychiatric thoughts. Assessment/Plan Atrial fibrillation (I48.91: Unspecified atrial fibrillation) Claudia Khoury has a history of diastolic heart failure and chronic, rate-controlled atrial fibrillation, which is permanent. She is anticoagulated with warfarin. An attempt was made to switch to Xarelto, but it was too expensive, so she remains on warfarin. She is also doing well on Toprol and diltiazem. She is currently asymptomatic and appears euvolemic. She will continue her current treatment regimen and return for a follow-up in 6 months. Portions of this record may have been created with voice recognition artificial intelligence software, specifically [employer], [employer] and or [employer]. Substitutions may have occurred due to the inherent limitations of voice recognition and artificial intelligence software. ATTESTATION: Documentation services were performed after patient or guardian consented to allow [facility] to record this visit. ARDEN video specialist and provider reviewed before signing. ARDEN: Rebekah Alexander Follow-up No qualifying data available Problem List/Past Medical History Ongoing Diastolic heart failure Extreme obesity 28-MAY-2014 12:48:08<$> HTN - Hypertension Smoker 28-MAY-2014 12:37:00<$> Tricuspid insufficiency, non-rheumatic Historical Meniere syndrome Procedure/Surgical History Arthroscopy of knee (2000), Ankle, Rotator cuff repair, Tonsillectomy, Wrist. Medications Adult Blood Pressure Machine with Large Bicep Cuff, See Instructions busPIRone 15 mg Tab Coumadin Coumadin 5 mg Tab, See Instructions, 2 refills Coumadin 5 mg Tab, See Instructions, 1 refills Coumadin 5 mg Tab, See Instructions, 2 refills Coumadin 5 mg Tab, 2.5 mg= 0.5 tab(s), Oral, Daily, 1 refills diltiazem CD 120 mg/24 hours Cap-ER, 120 mg= 1 cap(s), Oral, Daily, 3 refills Flonase 0.05 mg/inh nasal spray, 2 spray(s), Nasal, Daily furosemide 40 mg Tab hydrochlorothiazide 12.5 mg Cap, 12.5 mg= 1 cap(s), Oral, Daily lamotrigine 100 mg Tab, 300 mg= 3 tab(s), Oral, Daily Lexapro 10 mg Tab, 10 mg= 1 tab(s), Oral, Daily omeprazole 40 mg Cap-DR, 40 mg= 1 cap(s), Oral, Daily potassium chloride 20 mEq ER Tab, 20 mEq= 1 tab(s), Oral, BID spironolactone 25 mg Tab, 0.5 tab, Oral, Daily, 3 refills Symbicort 160/4.5 inhalation aerosol with adapter, 2 puff(s), Inhalation, BID (more content not included)... Normal [facility] Comment on above: Result Comment: Elec tronically Signed By: Santy MEDINA, Henrique Gibbons\.br\Date and Time Signed: 04/28/24 10:09 EDT\.br\Electronically Co-Signed By: Rebekah Alexander\.br\Date and Time Co-Signed: 04/25/24 16:23 EDT Physician Orderon 04-25-2024 Physician Order [id number]. [id number] Normal [facility] POCT PT/INRon 04-08-2024 POCT INR 2.2 High .7-1.2 [facility] Comment on above: Performed By: #### 2 [id number] #### [facility] [address] [place] [address] POCT PT 22.8 second(s) High 8.0-15.[address] [facility] Comment on above: Performed By: #### 2 [id number] #### [facility] [address] [place] [address] Alanine aminotransferase [En zymatic activity/volume] in Serum or PlasmaOrdered By: Corey Bee on 03-17-2024 ALT [Catalytic activity/Vol] 9 U/L 7-52 [facility] Albumin [Mass/volume] in Ser um or Plasma by Bromocresol green (BCG) dye binding methoOrdered By: Corey Bee on 03-17-2024 Albumin BCG dye [Mass/Vol] 3.9 g/dL 3.5-5.7 [facility] Alkaline phosphatase [Enzyma tic activity/volume] in Serum or PlasmaOrdered By: Corey Bee on 03-17-2024 ALP [Catalytic activity/Vol] 124 U/L 34-104 [facility] Aspartate aminotransferase [ Enzymatic activity/volume] in Serum or PlasmaOrdered By: Corey Bee on 03-17-2024 AST [Catalytic activity/Vol] 15 U/L 13-39 [facility] Basophils Auto (Bld) [#/Vol] Ordered By: Corey Bee on 03-17-2024 Basophils (Bld) [#/Vol] 0.1 10*3/uL 0.0-0.2 [facility] Basophils/100 WBC Auto (Bld) Ordered By: Corey Bee on 03-17-2024 Basophils/100 WBC (Bld) 0.8 % . [facility] Bilirubin.total [Mass/volume ] in Serum or PlasmaOrdered By: Corey Bee on 03-17-2024 Bilirubin [Mass/Vol] 0.4 mg/dL 0.3-1.0 [facility] Calcium [Mass/volume] in Ser um or PlasmaOrdered By: Corey Bee on 03-17-2024 Calcium [Mass/Vol] 9.4 mg/dL 8.6-10.3 [facility] Carbon dioxide, total [Moles /volume] in Serum or PlasmaOrdered By: Corey Gamboa on 03-17-2024 CO2 [Moles/Vol] 30.3 mmol/L 21.0-31.0 [facility] Chloride [Moles/volume] in S herlinda or PlasmaOrdered By: Corey Gamboa on 03-17-2024 Chloride [Moles/Vol] 97 mmol/L 98-107 [facility] Cholesterol [Mass/volume] in Serum or PlasmaOrdered By: Corey Gamboa on 03-17-2024 Cholesterol [Mass/Vol] 192 mg/dL 140-200 [place] Comment on above: Chol less than 200 m g/dl low riskChol 201-239 mg/dl borderline riskChol 240 mg/dl and greater high risk Cholesterol in LDL Calc [Mas s/Vol]Ordered By: Corey Gamboa on 03-17-2024 Cholesterol in LDL [Mass/Vol] 117 mg/dL 0-100 [facility] Comment on above: LDL ATP III CLASSIFI CATIONLDL less than 100 mg/dL OptimalLDL 100-129 mg/dL Near or above optimalLDL 130-159 mg/dL Borderline highLDL 160-189 mg/dL HighLDL greater than 189 mg/dL Very high Cholesterol in VLDL Calc [Ma ss/Vol]Ordered By: Corey Gamboa on 03-17-2024 Cholesterol in VLDL [Mass/Vol] 27 mg/dL [facility] Creatinine [Mass/volume] in Serum or PlasmaOrdered By: Corey Gamboa on 03-17-2024 Creatinine [Mass/Vol] 1.28 mg/dL 0.60-1.20 [facility] Eosinophils Auto (Bld) [#/Vo l]Ordered By: Corey Gamboa on 03-17-2024 Eosinophils (Bld) [#/Vol] 0.2 10*3/uL 0.0-0.45 [facility] Eosinophils/100 WBC Auto (Bl d)Ordered By: Corey Gamboa on 03-17-2024 Eosinophils/100 WBC (Bld) 1.9 % . [facility] Erythrocyte distribution wid th Auto (RBC) [Ratio]Ordered By: Corey Gamboa on 03-17-2024 Erythrocyte distribution width (RBC) [Ratio] 17.7 % 11.9-15.3 [facility] Globulin Calc (S) [Mass/Vol] Ordered By: Corey Gamboa on 03-17-2024 Globulin (S) [Mass/Vol] 4.0 g/dL [facility] Glucose [Mass/volume] in Ser um or PlasmaOrdered By: Corey Gamboa on 03-17-2024 Glucose [Mass/Vol] 86 mg/dL 70-100 [facility] Comment on above: ADA recommended refe rence rangeRandom Glucose Reference Range is dependent on time and content of last meal. Glucose of more than 200 mg/dL in a nonstressed, ambulatory subject supports the diagnosis of Diabetes Mellitus. Hematocrit Auto (Bld) [Volum e fraction]Ordered By: Corey Gamboa on 03-17-2024 Hematocrit (Bld) [Volume fraction] 33.0 % 34.0-46.4 [facility] Hemoglobin [Mass/volume] in BloodOrdered By: Corey Gamboa on 03-17-2024 Hemoglobin (Bld) [Mass/Vol] 10.5 g/dL 11.8-15.4 [facility] Leukocytes [#/volume] correc rosalba for nucleated erythrocytes in Blood by Automated counOrdered By: Corey Gamboa on 03-17-2024 WBC corrected for nucl RBC Auto (Bld) [#/Vol] 9.2 10*3/uL 3.8-11.6 [facility] Lymphocytes Auto (Bld) [#/Vo l]Ordered By: Corey Gamboa on 03-17-2024 Lymphocytes (Bld) [#/Vol] 1.2 10*3/uL 1.00-4.8 [facility] Lymphocytes/100 WBC Auto (Bl d)Ordered By: Corey Gmaboa on 03-17-2024 Lymphocytes/100 WBC (Bld) 12.9 % . [facility] MCH Auto (RBC) [Entitic mass ]Ordered By: Corey Gamboa on 03-17-2024 MCH (RBC) [Entitic mass] 24.6 pg 24.7-34.3 [facility] MCHC Auto (RBC) [Mass/Vol]Or dered By: Corey Gamboa on 03-17-2024 MCHC (RBC) [Mass/Vol] 31.8 g/dL 32.0-35.0 [facility] MCV Auto (RBC) [Entitic vol] Ordered By: Corey Gamboa on 03-17-2024 MCV (RBC) [Entitic vol] 77.3 fL 80-100 [facility] Monocytes Auto (Bld) [#/Vol] Ordered By: Corey Gamboa on 03-17-2024 Monocytes (Bld) [#/Vol] 0.4 10*3/uL 0.0-0.8 [facility] Monocytes/100 WBC Auto (Bld) Ordered By: Corey Gamboa on 03-17-2024 Monocytes/100 WBC (Bld) 4.2 % . [facility] Neutrophils Auto (Bld) [#/Vo l]Ordered By: Corey Gamboa on 03-17-2024 Neutrophils (Bld) [#/Vol] 7.4 10*3/uL 1.8-7.7 [facility] Neutrophils/100 WBC Auto (Bl d)Ordered By: Corey Gamboa on 03-17-2024 Neutrophils/100 WBC (Bld) 80.2 % . [facility] No Panel InformationOrdered By: Corey Gamboa on 03-17-2024 Estimated GFR (CKD-EPI) 47.073 mL/Min [facility] Creatinine Clearance (Chem N/A [facility] Nucleated erythrocytes [Pres ence] in Blood by Automated countOrdered By: Corey Gamboa on 03-17-2024 Nucleated RBC Auto Ql (Bld) 0.1 /100{WBC} 0-0.5 [facility] Platelet mean volume Auto (B ld) [Entitic vol]Ordered By: Corey Gamboa on 03-17-2024 Platelet mean volume (Bld) [Entitic vol] 8.0 fL 6.3-10.7 [facility] Platelets Auto (Bld) [#/Vol] Ordered By: Corey Gamboa on 03-17-2024 Platelets (Bld) [#/Vol] 317 10*3/uL 150-450 [facility] Potassium [Moles/volume] in Serum or PlasmaOrdered By: Corey Gamboa on 03-17-2024 Potassium [Moles/Vol] 4.1 mmol/L 3.5-5.1 [facility] Protein [Mass/volume] in Ser um or PlasmaOrdered By: Corey Gamboa on 03-17-2024 Protein [Mass/Vol] 7.9 g/dL 6.4-8.9 [facility] RBC Auto (Bld) [#/Vol]Ordere d By: Corey Gamboa on 03-17-2024 RBC (Bld) [#/Vol] 4.27 10*6/uL 3.60-5.00 [facility] Serum or plasma albumin/glob ulin mass ratioOrdered By: Corey Gamboa on 03-17-2024 Albumin/Globulin [Mass ratio] 1.0 {ratio} [facility] Serum or plasma anion gap de terminationOrdered By: Corey Gamboa on 03-17-2024 Anion gap [Moles/Vol] 12.8 mmol/L 6.0-15.0 [place] Serum or plasma high density lipoprotein (HDL) cholesterol measurementOrdered By: Corey Gamboa on 03-17-2024 Cholesterol in HDL [Mass/Vol] 48 mg/dL 23-92 [facility] Comment on above: HDL CHOL ATP-III CLA SSIFICATION Cardiovascular RiskHDL > or equal to 60 mg/dL LOWHDL < 40 mg/dL HIGH Serum or plasma total choles terol/high density lipoprotein (HDL) cholesterol mass ratOrdered By: Corey Gamboa on 03-17-2024 Cholesterol.total/Luciana sterol in HDL [Mass ratio] 4.0 {ratio} <5.0 [facility] Sodium [Moles/volume] in Ser um or PlasmaOrdered By: Corey Gamboa on 03-17-2024 Sodium [Moles/Vol] 136 mmol/L 136-145 [facility] Thyrotropin [Units/volume] i n Serum or PlasmaOrdered By: Corey Gamboa on 03-17-2024 TSH Qn 1.93 m[IU]/L 0.45-5.33 [facility] Triglyceride [Mass/volume] i n Serum or PlasmaOrdered By: Corey Gamboa on 03-17-2024 Triglyceride [Mass/Vol] 135 mg/dL 0-149 [facility] Comment on above: TRIG ATP III CLASSIF ICATIONTRIG less than 150 mg/dL NormalTRIG 150-199 mg/dL Borderline highTRIG 200-500 mg/dL High TRIG greater than 500 mg/dL Very highStandard traceable to the Center for Disease Conrtrol and Prevention (CDC) test method. Urea nitrogen [Mass/volume] in Serum or PlasmaOrdered By: Corey Gamboa on 03-17-2024 Urea nitrogen [Mass/Vol] 27 mg/dL 7-25 [facility] WBC Auto (Bld) [#/Vol]Ordere d By: Corey Gamboa on 03-17-2024 WBC (Bld) [#/Vol] 9.2 10*3/uL 3.8-11.6 [facility] POCT PT/INRon 02-19-2024 POCT INR 2.0 High .7-1.2 [facility] Comment on above: Performed By: #### 2 [id number] #### [facility] [address] [place] [address] POCT PT 21.3 second(s) High 8.0-15.[address] [facility] Comment on above: Performed By: #### 2 [id number] #### [facility] [address] [id number] Progress Note-Physicianon Progress Note-Physician Patient: CLAUDIA FLORES Age: 63 years Sex: Female : 1960 Associated Diagnoses: None Author: Jayda Lo Patient is seen today for their interval coumadin assessment in the [facility]. She has a pmhx of afib, diastolic heart failure, HTN, non rheumatic tricuspid insufficiency, GERD, current smoker. She is tolerating Coumadin well, denies any change in diet or change in medications. She continues to smoke. Pt is followed by [facility] cardiology. Denies any melena, hematochezia, hematuria, gingival bleeding, hematoma's or prolonged epistaxis. We discussed the patient's coumadin therapy today. --Indication: afib --Current coumadin pill being used: as above --Current dose of coumadin: as above --Side effects / complications of coumadin: Denies any problems with the use of coumadin -- denies any gum bleeds, nose bleeds, easy bruising, or other sequelae of coumadin toxicity. --Medication changes since last visit: nonr --OTC meds / herbal meds used since the last visit: none --Any change in diet since last visits, including vitamin-K rich foods: none --Compliance: no missed doses We also reviewed the patient's risk factors for bleeding using the Outpatient Bleeding Risk Index: 1. 65yo or older: no 2. Hx of GI tract bleeding: no 3. Hx of stroke: no 4. Serious co-morbid conditions (recent AK, anemia with Hct <30%, CRI with SCr > 1.5, DM): no Score = 0/4 Risk (low = 0, mod = 1-2, high = 3-4) Health Status Allergies: Allergic Reactions (Selected) No Known Allergies, Allergies (1) Active Severity Reaction No Known Allergies None Documented Current medications: (Selected) Prescriptions Prescribed Adult Blood Pressure Machine with Large Bicep Cuff: Adult Blood Pressure Machine with Large Bicep Cuff, See Instructions, 1 EA, 0, Adult BP machine and large bicep cuff Follow daily BP readings and keep log, [facility], Supply, 160, cm, 12/23/19 11:18:00 EST, Height/Length Measured, 140, kg... Coumadin 5 mg Tab: 2.5 mg = 0.5 tab(s), Oral, Daily, take 2.5 mg daily, # 90 tab(s), Refills(s) 1, Pharmacy: [facility], 160, cm, 11/30/20 14:49:00 EST, Height/Length Dosing, 141, kg, 11/30/20 14:49:00 EST, Weight Dosing Coumadin 5 mg Tab: See Instructions, take 2.5mg everyday, # 90 tab(s), Refills(s) 2, Pharmacy: [facility], 160, cm, 10/26/23 13:51:00 EST, Height/Length Dosing, 134, kg, 10/26/23 13:51:00 EST, Weight Dosing Coumadin 5 mg Tab: See Instructions, take 5 mg on sun and sun. take 2.5mg all other days, # 180 tab(s), Refills(s) 1, Pharmacy: [facility], 160, cm, 04/11/23 15:37:00 EDT, Height/Length Dosing, 137, kg, 10/18/22 12:02:00 EST, Weight Dosing Coumadin 5 mg Tab: See Instructions, take 5mg sun and sun. take 2.5mg all other days., # 180 tab(s), Refills(s) 2, Pharmacy: [facility], 160, cm, 04/11/23 15:37:00 EDT, Height/Length Dosing, 137, kg, 10/18/22 12:02:00 EST, Weight Dosing Toprol XL 100 mg Tab-ER: 100 mg = 1 tab(s), Oral, BID, X 90 day(s), # 180 tab(s), Refills(s) 3, Pharmacy: [facility], 160, cm, 04/11/23 15:37:00 EDT, Height/Length Dosing, 137, kg, 10/18/22 12:02:00 EST, Weight Dosing Xarelto 20 mg oral tablet: 20 mg, Oral, qPM, AFIB and CrCl over 50 mL/minute - Take with evening meal, # 90 tab(s), Refills(s) 1, Pharmacy: [facility], 160, cm, 10/26/23 13:51:00 EST, Height/Length Dosing, 134, kg, 10/26/23 13:51:00 EST, Weight Dosing diltiazem CD 120 mg/24 hours Cap-ER: 120 mg = 1 cap(s), Oral, Daily, # 90 cap(s), Refills(s) 3, Pharmacy: [facility], 160, cm, 04/11/23 15:37:00 EDT, Height/Length Dosing, 137, kg, 10/18/22 12:02:00 EST, Weight Dosing spironolactone 25 mg Tab: 0.5 tab, Oral, Daily, X 90 day(s), # 45 tab(s), Refills(s) 3, Pharmacy: [facility], 160, cm, 04/11/23 15:37:00 EDT, Height/Length Dosing, 137, kg, 10/18/22 12:02:00 EST, Weight Dosing Documented Medications Documented Coumadin: Flonase 0.05 mg/inh nasal spray: 2 spray(s), Nasal, Daily, Refill(s) 0 Lexapro 10 mg Tab: 10 mg = 1 tab(s), Oral, Daily Symbicort 160/4.5 inhalation aerosol with adapter: 2 puff(s), Inhalation, BID, Refill(s) 0 Ventolin HFA 90 mcg/inh Aerosol: See Instructions, Refill(s) 0, 1 puff(s) Inhalation busPIRone 15 mg Tab: Refills(s) 0 furosemide 40 mg Tab: Refills(s) 0 hydrochlorothiazide 12.5 mg Cap: 12.5 mg = 1 cap(s), Oral, Daily, Refills(s) 0 lamotrigine 100 mg Tab: 300 mg = 3 tab(s), Oral, Daily, Refills(s) 0 omeprazole 40 mg Cap-DR: 40 mg = 1 cap(s), Oral, Daily, # 30 cap(s), Refills(s) 0 potassium chloride 20 mEq ER Tab: 20 mEq = 1 tab(s), Oral, BID, Refills(s) 0 traZODONE 100 mg Tab: 200 mg = 2 tab(s), Oral, Refills(s) 0 traZODONE 100 mg Tab: Refills(s) 0, Home Medications (22) Active Adult Blood Pressure Machine with Large Bicep Cuff See Instructions busPIRone (more content not included)... Normal [facility] Comment on above: Result Comment: Elec tronically Signed By: Jayda Lo\.br\Date and Time Signed: 02/19/24 10:32 EDT POCT PT/INRon 01-08-2024 POCT INR 2.0 High .7-1.2 [facility] Comment on above: Performed By: #### 2 [id number] #### [facility] [address] [place] [address] POCT PT 20.9 second(s) High 8.0-15.[address] [facility] Comment on above: Performed By: #### 2 [id number] #### [facility] [address] [place] [address] Medication Refillon 12-25-19 24 Medication Refill Patient: CLAUDIA KHOURY Age: 63 years Sex: Female : 1960 Associated Diagnoses: None Author: Jayda Lo Coumadin 5mg, 90 tabs, 2 refills sent to mail away pharm Health Status Allergies: Allergic Reactions (Selected) No Known Allergies, Allergies (1) Active Reaction No Known Allergies None Documented Current medications: (Selected) Prescriptions Prescribed Adult Blood Pressure Machine with Large Bicep Cuff: Adult Blood Pressure Machine with Large Bicep Cuff, See Instructions, 1 EA, 0, Adult BP machine and large bicep cuff Follow daily BP readings and keep log, [facility], Supply, 160, cm, 12/23/19 11:18:00 EST, Height/Length Measured, 140, kg... Coumadin 5 mg Tab: 2.5 mg = 0.5 tab(s), Oral, Daily, take 2.5 mg daily, # 90 tab(s), Refills(s) 1, Pharmacy: [facility], 160, cm, 11/30/20 14:49:00 EST, Height/Length Dosing, 141, kg, 11/30/20 14:49:00 EST, Weight Dosing Coumadin 5 mg Tab: See Instructions, take 2.5mg everyday, # 90 tab(s), Refills(s) 2, Pharmacy: [facility], 160, cm, 10/26/23 13:51:00 EST, Height/Length Dosing, 134, kg, 10/26/23 13:51:00 EST, Weight Dosing Coumadin 5 mg Tab: See Instructions, take 5 mg on sun and tue. take 2.5mg all other days, # 180 tab(s), Refills(s) 1, Pharmacy: [facility], 160, cm, 04/11/23 15:37:00 EDT, Height/Length Dosing, 137, kg, 10/18/22 12:02:00 EST, Weight Dosing Coumadin 5 mg Tab: See Instructions, take 5mg sun and sun. take 2.5mg all other days., # 180 tab(s), Refills(s) 2, Pharmacy: [facility], 160, cm, 04/11/23 15:37:00 EDT, Height/Length Dosing, 137, kg, 10/18/22 12:02:00 EST, Weight Dosing Toprol XL 100 mg Tab-ER: 100 mg = 1 tab(s), Oral, BID, X 90 day(s), # 180 tab(s), Refills(s) 3, Pharmacy: [facility], 160, cm, 04/11/23 15:37:00 EDT, Height/Length Dosing, 137, kg, 10/18/22 12:02:00 EST, Weight Dosing Xarelto 20 mg oral tablet: 20 mg, Oral, qPM, AFIB and CrCl over 50 mL/minute - Take with evening meal, # 90 tab(s), Refills(s) 1, Pharmacy: [facility], 160, cm, 10/26/23 13:51:00 EST, Height/Length Dosing, 134, kg, 10/26/23 13:51:00 EST, Weight Dosing diltiazem CD 120 mg/24 hours Cap-ER: 120 mg = 1 cap(s), Oral, Daily, # 90 cap(s), Refills(s) 3, Pharmacy: [facility], 160, cm, 04/11/23 15:37:00 EDT, Height/Length Dosing, 137, kg, 10/18/22 12:02:00 EST, Weight Dosing spironolactone 25 mg Tab: 0.5 tab, Oral, Daily, X 90 day(s), # 45 tab(s), Refills(s) 3, Pharmacy: [facility], 160, cm, 04/11/23 15:37:00 EDT, Height/Length Dosing, 137, kg, 10/18/22 12:02:00 EST, Weight Dosing Documented Medications Documented Coumadin: Flonase 0.05 mg/inh nasal spray: 2 spray(s), Nasal, Daily, Refill(s) 0 Lexapro 10 mg Tab: 10 mg = 1 tab(s), Oral, Daily Symbicort 160/4.5 inhalation aerosol with adapter: 2 puff(s), Inhalation, BID, Refill(s) 0 Ventolin HFA 90 mcg/inh Aerosol: See Instructions, Refill(s) 0, 1 puff(s) Inhalation busPIRone 15 mg Tab: Refills(s) 0 furosemide 40 mg Tab: Refills(s) 0 hydrochlorothiazide 12.5 mg Cap: 12.5 mg = 1 cap(s), Oral, Daily, Refills(s) 0 lamotrigine 100 mg Tab: 300 mg = 3 tab(s), Oral, Daily, Refills(s) 0 omeprazole 40 mg Cap-DR: 40 mg = 1 cap(s), Oral, Daily, # 30 cap(s), Refills(s) 0 potassium chloride 20 mEq ER Tab: 20 mEq = 1 tab(s), Oral, BID, Refills(s) 0 traZODONE 100 mg Tab: 200 mg = 2 tab(s), Oral, Refills(s) 0 traZODONE 100 mg Tab: Refills(s) 0, Home Medications (22) Active Adult Blood Pressure Machine with Large Bicep Cuff See Instructions busPIRone 15 mg Tab Coumadin Coumadin 5 mg Tab 2.5 mg = 0.5 tab(s), Oral, Daily Coumadin 5 mg Tab See Instructions Coumadin 5 mg Tab See Instructions Coumadin 5 mg Tab See Instructions diltiazem CD 120 mg/24 hours Cap-ER 120 mg = 1 cap(s), Oral, Daily Flonase 0.05 mg/inh nasal spray 2 spray(s), Nasal, Daily furosemide 40 mg Tab hydrochlorothiazide 12.5 mg Cap 12.5 mg = 1 cap(s), Oral, Daily lamotrigine 100 mg Tab 300 mg = 3 tab(s), Oral, Daily Lexapro 10 mg Tab 10 mg = 1 tab(s), Oral, Daily omeprazole 40 mg Cap-DR 40 mg = 1 cap(s), Oral, Daily potassium chloride 20 mEq ER Tab 20 mEq = 1 tab(s), Oral, BID spironolactone 25 mg Tab 0.5 tab, Oral, Daily Symbicort 160/4.5 inhalation aerosol with adapter 2 puff(s), Inhalation, BID Toprol XL 100 mg Tab-ER 100 mg = 1 tab(s), Oral, BID traZODONE 100 mg Tab 200 mg = 2 tab(s), Oral traZODONE 100 mg Tab Ventolin HFA 90 mcg/inh Aerosol See Instructions Xarelto 20 mg oral tablet 20 mg, Oral, qPM , No qualifying data available Problem list: All Problems Diastolic heart failure / SNOMED CT 7655813538 / Confirmed Acute Extreme obesity 28-MAY-2014 12:48:08<$> / SNOMED CT [id number] / Confirmed HTN - Hypertension / SNOMED CT [id number] / Confirmed Smoker 28-MAY-2014 (more content not included)... Normal [facility] POCT PT/INRon 11-27-2023 POCT INR 2.2 High .7-1.2 [facility] Comment on above: Performed By: #### 2 [id number] #### [facility] [address] [place] [address] POCT PT 22.9 second(s) High 8.0-15.[address] [facility] Comment on above: Performed By: #### 2 [id number] #### [facility] [address] [place] [address] CHEMISTRYOrdered By: Lab ROP User on 11-09-2023 INR Coag (Bld) [Relative time] 3.4 {INR} High 0.7 - 1.2 [facility] [place] [facility] Subsection POC Device SN [id number] Invalid Interpretation Code [facility] [place] [facility] Subsection POC UsernamGREG Ortega Invalid Interpretation Code [facility] [place] [facility] Subsection POCT PT 33.5 s High 8.0 - 15.0 second(s) [facility] [place] [facility] Subsection Sodium [Moles/Vol] [id number] mmol/L Invalid Interpretation Code [facility] [place] [facility] Subsection COAGULATIONOrdered By: Neymar De Santiago on 11-09-2023 INR Coag (Bld) [Relative time] 3.4 {INR} High 0.7 - 1.2 [facility] POCT PT 33.5 s High 8 - 15 second(s) [facility] POCT PT/INRon 11-09-2023 POCT INR 3.4 High .7-1.2 [facility] Comment on above: Performed By: #### 2 [id number] #### [facility] [address] [place] [address] POCT PT 33.5 second(s) High 8.0-15.[address] [facility] Comment on above: Performed By: #### 2 [id number] #### [facility] [address] [place] [address] CHEMISTRYOrdered By: Lab VERONICA User on 11-02-2023 POC Device SN [id number] Invalid Interpretation Code [facility] [place] [facility] Subsection POC Username IRINA TOLBERT Invalid Interpretation Code [facility] [place] [facility] Subsection Sodium [Moles/Vol] [id number] mmol/L Invalid Interpretation Code [facility] [place] [facility] Subsection COAGULATIONOrdered By: Shaun Tolbert on 11-02-2023 INR Coag (Bld) [Relative time] 4.3 {INR} High 0.7 - 1.2 [facility] POCT PT 41.2 s High 8 - 15 second(s) [facility] CHEMISTRYOrdered By: Teo MARTIN User on 09-21-2023 POC Device SN [id number] Invalid Interpretation Code [facility] [place] P[facility] Subsection POC Username GREG DE SANTIAGO Invalid Interpretation Code [facility] [place] [facility] Subsection Sodium [Moles/Vol] [id number] mmol/L Invalid Interpretation Code [facility] [place] [facility] Subsection CHEMISTRYOrdered By: Adelina Farah on 09-15-2022 INR POC FT 2.4 [facility] PT POC FT 26.5 s High 10.8 - 13.6 second(s) [facility] CHEMISTRYOrdered By: Adelina Farah on 08-04-2022 INR POC FT 2.0 [facility] PT POC FT 23.8 s High 10.8 - 13.6 second(s) [facility] CHEMISTRYOrdered By: Adelina Farah on 06-23-2022 INR POC FT 2.5 [facility] PT POC FT 29.7 s High 10.8 - 13.6 second(s) [facility] CHEMISTRYOrdered By: Irina Tolbert on 05-12-2022 INR POC FT 2.6 [facility] PT POC FT 31.1 s High 10.8 - 13.6 second(s) [facility] CHEMISTRYOrdered By: Irina Tolbert on 11-17-2021 INR POC FT 3.3 [facility] PT POC FT 39.3 s High 10.8 - 13.6 second(s) [facility] CHEMISTRYOrdered By: Anjana Alexis on 10-14-2021 INR POC FT 3.1 [facility] PT POC FT 36.8 s High 10.8 - 13.6 second(s) [facility] COAGULATIONOrdered By: Leonila Mccullough on 06-14-2021 INR Coag (PPP) [Relative time] 5.5 {INR} Invalid Interpretation Code [facility] [place] [facility] Comment on above: Result Comment: Resu lts Verified By Repeat Analysis. Results Called To Rubi De Santiago By REMY And Read Back For Confirmation On 06/14/2021 13:03:57 EDT. PT Coag (PPP) [Time] 65.9 s Invalid Interpretation Code 10.2 - 12.9 second(s) [facility] [place] [facility] Comment on above: Result Comment: Resu lts Verified By Repeat Analysis. Results Called To Rubi De Santiago By REMY And Read Back For Confirmation On 06/14/2021 13:03:57 EDT. COAGULATIONOrdered By: Hannah Danielle on 05-27-2021 INR Coag (PPP) [Relative time] 5.3 {INR} Invalid Interpretation Code [facility] [place] [facility] Comment on above: Result Comment: Resu lts Called To IRINA TOLBERT AT [facility] By And Read Back For Confirmation On 05/27/2021 10:03:28 EDT. Results Verified By Repeat Analysis PT Coag (PPP) [Time] 63.9 s Invalid Interpretation Code 10.2 - 12.9 second(s) [facility] [place] [facility] Comment on above: Result Comment: Resu lts [facility] By And Read Back For Confirmation On 05/27/2021 10:03:28 EDT. 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 FUROSEMIDE 40 MG TABLET Take 1 tablet by mouth twice * METOPROLOL SUCCINATE ER 100 M* Take 1 tablet by mouth once d* POTASSIUM CHLORIDE ER 20 MEQ * Take 1 tablet by mouth twice * RIVAROXABAN 20 MG TABLET Take 1 tablet by mouth once d* FLUTICASONE PROPIONATE 50 MCG* Use in the nose once daily. HYDROCHLOROTHIAZIDE 12.5 MG T* Take by mouth once daily. OMEPRAZOLE 40 MG CAPSULE,NELI* Take by mouth twice daily. VENTOLIN HFA 90 MCG/ACTUATION* Inhale as instructed. RANITIDINE 150 MG CAPSULE Take by mouth twice daily. Problem List As Of Date 02/20/2019 Noted Resolved Obesity, Class III, BMI >= 40 (morbid obesity) *INVALID FOR* Paroxysmal atrial fibrillation (HCC) [I48.0] INVALID FOR* Gastroesophageal reflux disease [K21.9] INVALID FOR* Acute diastolic heart failure (HCC) [I50.31] INVALID FOR*01/30/2018 Non-rheumatic mitral regurgitation, mild [I34.0]INVALID FOR* H/O: pneumonia [Z87.01] INVALID FOR* Chronic diastolic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 anticoagulants. She denies any other bleeding. 10/30/2017 The patient presents today for a posthospitalization follow-up. She presented to the hospital with complaints of increased swelling and shortness of breath. She was found to be in acute diastolic heart failure likely exacerbated by atrial fibrillation. Her metoprolol was increased to 100 mg daily. She was placed on Lasix 40 mg by mouth twice a day after IV diuresis. She was then discharged to home and this is her follow-up visit. She feels better. She was able to climb 2 flights of stairs the other day with only mild to moderate shortness of breath. This is a marked improvement for her. She also has noted some mild dizziness when she gets up from a lying or seated position. She denies any chest discomfort or syncopal episodes. She states that she has been compliant with her anticoagulant. She does relate a significant fear of a possible cardioversion. 11/15/2017 The patient presents today for her two-week follow-up visit. The patient is complaining about decreased urination and increased weight. She also has noticed an increased amount of swelling. There appears to a been a miscommunication as the patient decrease her furosemide dose to once a day. My notes state that we were going to consider decreasing the diuretic after her blood work. She already decreased the dose on her own. She denies any new chest discomfort. She does have a fullness feeling in the epigastric area which was similar to what she had prior to going to the hospital several weeks ago. Her weight is up 5 pounds. Her recent blood work revealed a low normal potassium level of 3.4. 12/05/2017 The patient presents today for a follow-up after recent lab work. She was placed on potassium supplement due to an increase in diuretics. Her potassium level was 3.4. She continues to remain in atrial fibrillation. She still has complaints of fatigue and weakness. She still has shortness of breath with exertion. She still is fearful of a cardioversion. We have discussed the procedure, risks and benefits. At the end of our discussion it seems she is willing to accept this procedure. We will need to increase her potassium supplement prior to that. 01/30/2018 The patient presents today for a follow-up after a direct current cardioversion. The cardioversion successfully converted the patient to sinus rhythm. She has done well since her cardioversion. Her only problem is that she has developed an upper respiratory cold. She still has a nagging cough and some sinus congestion from that. She denies any chest pain or shortness of breath. She denies any syncopal or near syncopal episodes over the past month. She does get occasional swelling in her lower extremities. She complains of a dry mouth at times. This may be secondary to furosemide. 03/06/2018 The patient presents today for a 1 month follow-up visit. The patient has complaints of some times low heart rates in the 40s. These are occasionally associated with dizziness and lightheadedness but not consistently. The patient still complains of occasional palpitations and irregular heart beats. She denies any chest discomfort or unusual shortness of breath. In general, she has done fairly well over the past month. She remains in sinus rhythm. She has been compliant with her medications. PAST MEDICAL HISTORY Diagnosis Date - GERD (gastroesophageal reflux disease) - Meniere disease, right PAST SURGICAL HISTORY Procedure Laterality Date - KNEE SURGERY HX - SHOULDER SURGERY HX - TONSILLECTOMY HX Social History Substance Use Topics - Smoking status: Current Every Day Smoker Packs/day: 1.00 Years: 20.00 Types: Cigarettes - Smokeless tobacco: Never Used - Alcohol use No FAMILY HISTORY Problem Relation Age of Onset - Heart Father ALLERGIES: ALLERGIES No Known Allergies MEDICATIONS: metoprolol succinate ER (TOPROL XL) 25 mg 24 hr tablet Take by mouth once daily. potassium chloride ER (K-DUR, KLOR-CON) 20 mEq tablet Take 2 tablets by mouth once daily. metoprolol succinate ER (TOPROL XL) 100 mg Tb24 Take 1 tablet by mouth once daily. furosemide (LASIX) 40 mg tablet Take 1 tablet by mouth twice daily. fluticasone (FLONASE) 50 mcg/actuation nasal spray Use in the nose once daily. hydroCHLOROthiazide (HYDRODIURIL, ESIDRIX) 12.5 mg tablet Take by mouth once daily. Omeprazole 40 mg capsule Take by mouth once daily. VENTOLIN HFA 90 mcg/actuation inhaler Inhale as instructed. Ranitidine HCl 150 mg capsule Take by mouth twice daily. rivaroxaban (XARELTO) 20 mg tablet Take 1 tablet by mouth once daily. REVIEW OF SYSTEMS: A complete review of systems was obtained and is remarkable for that noted above. The remaining systems are unremarkable. I personally interviewed, confirmed and edited the above information if obtained by others. PHYSICAL EXAMINATION: BP 132/72 Pulse (!) 52 Resp 18 Ht 160 cm (5' 3ANDquot;) Wt 117.9 kg (260 lb) SpO2 100% BMI 46.06 kg/m2 General: Well appearing, in no acute distress. Eyes: Conjunctiva normal, sclera normal Neck: No jugular venous distention, no palpable thyromegaly. Heart: RRR, no S3, no S4. Soft grade 1/6 systolic murmur heard best at the left lower sternal border. No carotid bruits. Respiratory: Clear to auscultation bilaterally. Good respiratory effort. GI: Soft, nontender, bowel sounds normal, no palpable hepatosplenomegaly Extremities: Normal pulses in distal lower extremities. 3+ bilateral lower extremity edema, skin is shiny suggesting chronicity. Neuro: Alert, cooperative with no focal deficit. Psych: Pleasant and cooperative. Skin: No rashes or wounds. CARDIOVASCULAR MEDICINE TESTING: A 12-lead electrocardiogram obtained on 10/08/2017 reveals atrial fibrillation with a rapid ventricular response at 152 bpm. There are diffuse T-wave abnormalities noted. A 12-lead electrocardiogram obtained on 10/12/2017 reveals atrial fibrillation with a rapid ventricular response at 147 bpm. There was one PVC noted. There are nonspecific ST and T-wave changes noted diffusely. Laboratory values obtained on 10/10/2017 revealing a white count of 6.3, hemoglobin 12, hematocrit 39, platelets 218, sodium 142, potassium 4.6, chloride 101, bicarbonate 22, glucose 108, BUN 12, creatinine 1.07, GFR 58, total cholesterol 151, triglycerides 90, HDL 45 and LDL 88. TSH was 1.3, thyroxine T4 was 8.8. T3 uptake was 29. Free thyroxine index was 2.6. Free T3 was 2.8. No magnesium level was obtained. A 2-D echocardiogram performed on 10/24/2017 reveals a left ventricular ejection fraction of 50%. Right ventricular systolic function was normal. There was moderate biatrial enlargement. There was mild mitral regurgitation present. There was moderate tricuspid regurgitation present. There was a trivial pericardial effusion of no hemodynamic consequence. The right ventricular systolic pressure was mildly to moderately elevated at 43 mmHg. There was a possible small patent foramen ovale by color flow interrogation of the atrial septum. A 12-lead electrocardiogram obtained on 10/22/2017 reveals atrial fibrillation with a rapid ventricular response at 111 bpm. There are nonspecific ST and T-wave changes present. Lab work obtained on 10/30/2017 reveals a sodium of 135, potassium 3.4, chloride 88, bicarbonate 26, glucose 101, BUN 32 and creatinine 1.05. GFR was 59. Laboratory values obtained on 11/29/2017 revealed a sodium of 140, potassium 3.4, chloride 97, bicarbonate 26, glucose 113, BUN 25, creatinine 0.97 and a GFR of 65. A 12-lead electrocardiogram obtained on December 05, 2017 reveals atrial fibrillation with a rapid ventricular response at 122 bpm. There is one single PVC noted. There are nonspecific ST and T-wave changes noted. The patient underwent a successful direct current cardioversion on 12/26/2017 utilizing one 200 J synchronized biphasic defibrillation. A 12-lead electrocardiogram on January 30, 2018 reveals sinus bradycardia at 50 bpm. This is an otherwise normal ECG. A 12-lead electrocardiogram on March 06, 2018 reveals sinus bradycardia at 52 bpm. This is an otherwise normal ECG. IMPRESSION: 1. Acute diastolic heart failure (HCC) - ICD9: 428.31, ICD10: I50.31 (primary diagnosis), exacerbated by atrial fibrillation with a rapid ventricular response, we increased the patient's furosemide 40 mg twice a day at her last visit. Left ventricular ejection fraction 50% by echocardiogram on 10/24/2017. Continue furosemide at current dose. Continue potassium supplementation. 2. Paroxysmal atrial fibrillation (HCC) - ICD9: 427.31, ICD10: I48.0, successful cardioversion on December 26, 2017, remains in sinus rhythm, remains on Xarelto, mildly bradycardic. Continue metoprolol ER 100 mg daily for now. 3. Non-rheumatic tricuspid insufficiency, mild to moderate. 4. Non-rheumatic mitral regurgitation, mild - ICD9: 424.0, ICD10: I34.0 5. Obesity, Class III, BMI ANDgt;= 40 (morbid obesity) E66.01 - ICD9: 278.01, ICD10: E66.01, discussed the need for weight loss. 6. Tobacco use, strongly suggested smoking cessation. Discussed both she and her stopping together. PLAN: Continue metoprolol ER 100 mg daily. Consider decreasing if patient has further bradycardic symptomatic episodes. Continue Xarelto. Continue furosemide. Continue potassium supplement. Low-cholesterol, low-fat diet. Weight loss. Smoking cessation, suggested both she and her stopping together. Follow-up in 6 months or sooner if necessary. A copy of this note will be provided to the requesting physician by way of shared medical record or to the requesting physician via U.S. Mail. This document was generated utilizing [employer] dictation. I have reviewed and verified that the contents of the document are accurate with the exception of minor grammatical, spelling and punctuation errors. CONTACT INFORMATION: Thank you for allowing us to participate in the care of this very pleasant patient. Please free to contact us if we can be of any further assistance. Melissa Hall MD, [facility] WITH [facility] Department of Cardiovascular Medicine [facility] [place] [facility] [place] [id number] Office: [phone] Referring Provider: COREY GAMBOA [[id number]] Allergies As of Date: 03/06/2018 (No Known Allergies) Date Reviewed: 03/06/2018 Reviewed by: Melissa Hall - Fully Assessed Reason for Visit: Follow Up [171] Primary Visit Diagnosis:Paroxysmal atrial fibrillation (HCC) [I48.0] Other Visit Diagnoses:Chronic diastolic heart failure (HCC) [I50.32] Non-rheumatic mitral regurgitation, mild [I34.0] Obesity, Class III, BMI >= 40 (morbid obesity) E66.01 [E66.01] Tobacco use [Z72.0] Prescriptions as of 03/06/2018 Sig: METOPROLOL SUCCINATE ER 25 MG* Take by mouth once daily. POTASSIUM CHLORIDE ER 20 MEQ * Take 2 tablets by mouth once * METOPROLOL SUCCINATE ER 100 M* Take 1 tablet by mouth once d* FUROSEMIDE 40 MG TABLET Take 1 tablet by mouth twice * FLUTICASONE 50 MCG/ACTUATION * Use in the nose once daily. HYDROCHLOROTHIAZIDE 12.5 MG T* Take by mouth once daily. OMEPRAZOLE 40 MG CAPSULE,NELI* Take by mouth once daily. VENTOLIN HFA 90 MCG/ACTUATION* Inhale as instructed. RANITIDINE 150 MG CAPSULE Take by mouth twice daily. RIVAROXABAN 20 MG TABLET Take 1 tablet by mouth once d* Problem List As Of Date 03/06/2018 Noted Resolved Obesity, Class III, BMI >= 40 (morbid obesity) *INVALID FOR* Paroxysmal atrial fibrillation (HCC) [I48.0] INVALID FOR* Gastroesophageal reflux disease [K21.9] INVALID FOR* Acute diastolic heart failure (HCC) [I50.31] INVALID FOR*01/30/2018 Non-rheumatic mitral regurgitation, mild [I34.0]INVALID FOR* H/O: pneumonia [Z87.01] INVALID FOR* Chronic diastolic heart failure (HCC) [I50.32] INVALID FOR* Tobacco use [Z72.0] INVALID FOR* Encounter Status:Closed by LUIS HALL MD on 03/06/18 Normal [facility] PROGRESSon 03-06-2018 Protein mass conc HNO ID: [id number] Author: Melissa Hall Service: (none) Author Type: Physician Type: Progress Notes Filed: 03/06/2018 10:44 AM Note Text: [facility] [place] [facility] Department of Cardiovascular Medicine OUTPATIENT VISIT DATE 03/06/18 OUTPATIENT VISIT TYPE ESTABLISHED PRIMARY CARE PHYSICIAN: Corey Gamboa [address] [place] [phone] CHIEF COMPLAINT: Patient presents with: Follow Up HISTORY OF PRESENT ILLNESS: Claudia Khoury is a 57 year old female with a past cardiac history of paroxysmal atrial fibrillation. 10/12/2017 The patient presents today as a consult regarding newly diagnosed atrial fibrillation. This was diagnosed in the primary care physician's office on 10/08/2017 by EKG. The patient was not placed on any rate control medications and was not anticoagulated. The patient continues to have feelings of fatigue and shortness of breath. The patient states that she has had shortness of breath for years ever since a pneumonia in 2012. She is not certain that it has worsened over the past several months. She has also had a rapid heart rate for many years. She did notice increased swelling in her lower extremities starting in February 2017. She has not had any kinds of chest discomfort. It seems she is very uncertain as to when her heart actually went out of rhythm. She saw her primary care physician and was started on hydrochlorothiazide. She has not gotten the medicine yet. She did have blood tests performed with results detailed below. Her EKG as noted above shows atrial fibrillation with a rapid ventricular response. The patient was not placed on any type of rate controlling medication. She was also not anticoagulated. The patient has had problems with reflux and is on several medications. She states that when she strains for a bowel movement she has noted a slight bit of blood on the toilet paper. This may be a side effect of the reflux medications as far as constipation goes. The patient may require a stool softener to help lessen the chance of bleeding while on oral anticoagulants. She denies any other bleeding. 10/30/2017 The patient presents today for a posthospitalization follow-up. She presented to the hospital with complaints of increased swelling and shortness of breath. She was found to be in acute diastolic heart failure likely exacerbated by atrial fibrillation. Her metoprolol was increased to 100 mg daily. She was placed on Lasix 40 mg by mouth twice a day after IV diuresis. She was then discharged to home and this is her follow-up visit. She feels better. She was able to climb 2 flights of stairs the other day with only mild to moderate shortness of breath. This is a marked improvement for her. She also has noted some mild dizziness when she gets up from a lying or seated position. She denies any chest discomfort or syncopal episodes. She states that she has been compliant with her anticoagulant. She does relate a significant fear of a possible cardioversion. 11/15/2017 The patient presents today for her two-week follow-up visit. The patient is complaining about decreased urination and increased weight. She also has noticed an increased amount of swelling. There appears to a been a miscommunication as the patient decrease her furosemide dose to once a day. My notes state that we were going to consider decreasing the diuretic after her blood work. She already decreased the dose on her own. She denies any new chest discomfort. She does have a fullness feeling in the epigastric area which was similar to what she had prior to going to the hospital several weeks ago. Her weight is up 5 pounds. Her recent blood work revealed a low normal potassium level of 3.4. 12/05/2017 The patient presents today for a follow-up after recent lab work. She was placed on potassium supplement due to an increase in diuretics. Her potassium level was 3.4. She continues to remain in atrial fibrillation. She still has complaints of fatigue and weakness. She still has shortness of breath with exertion. She still is fearful of a cardioversion. We have discussed the procedure, risks and benefits. At the end of our discussion it seems she is willing to accept this procedure. We will need to increase her potassium supplement prior to that. 01/30/2018 The patient presents today for a follow-up after a direct current cardioversion. The cardioversion successfully converted the patient to sinus rhythm. She has done well since her cardioversion. Her only problem is that she has developed an upper respiratory cold. She still has a nagging cough and some sinus congestion from that. She denies any chest pain or shortness of breath. She denies any syncopal or near syncopal episodes over the past month. She does get occasional swelling in her lower extremities. She complains of a dry mouth at times. This may be secondary to furosemide. 03/06/2018 The patient presents today for a 1 month follow-up visit. The patient has complaints of some times low heart rates in the 40s. These are occasionally associated with dizziness and lightheadedness but not consistently. The patient still complains of occasional palpitations and irregular heart beats. She denies any chest discomfort or unusual shortness of breath. In general, she has done fairly well over the past month. She remains in sinus rhythm. She has been compliant with her medications. PAST MEDICAL HISTORY Diagnosis Date - GERD (gastroesophageal reflux disease) - Meniere disease, right PAST SURGICAL HISTORY Procedure Laterality Date - KNEE SURGERY HX - SHOULDER SURGERY HX - TONSILLECTOMY HX Social History Substance Use Topics - Smoking status: Current Every Day Smoker Packs/day: 1.00 Years: 20.00 Types: Cigarettes - Smokeless tobacco: Never Used - Alcohol use No FAMILY HISTORY Problem Relation Age of Onset - [facility] ALLERGIES: ALLERGIES No Known Allergies MEDICATIONS: metoprolol succinate ER (TOPROL XL) 25 mg 24 hr tablet Take by mouth once daily. potassium chloride ER (K-DUR, KLOR-CON) 20 mEq tablet Take 2 tablets by mouth once daily. metoprolol succinate ER (TOPROL XL) 100 mg Tb24 Take 1 tablet by mouth once daily. furosemide (LASIX) 40 mg tablet Take 1 tablet by mouth twice daily. fluticasone (FLONASE) 50 mcg/actuation nasal spray Use in the nose once daily. hydroCHLOROthiazide (HYDRODIURIL, ESIDRIX) 12.5 mg tablet Take by mouth once daily. Omeprazole 40 mg capsule Take by mouth once daily. VENTOLIN HFA 90 mcg/actuation inhaler Inhale as instructed. Ranitidine HCl 150 mg capsule Take by mouth twice daily. rivaroxaban (XARELTO) 20 mg tablet Take 1 tablet by mouth once daily. REVIEW OF SYSTEMS: A complete review of systems was obtained and is remarkable for that noted above. The remaining systems are unremarkable. I personally interviewed, confirmed and edited the above information if obtained by others. PHYSICAL EXAMINATION: BP 132/72 Pulse (!) 52 Resp 18 Ht 160 cm (5' 3 ) Wt 117.9 kg (260 lb) SpO2 100% BMI 46.06 kg/m2 General: Well appearing, in no acute distress. Eyes: Conjunctiva normal, sclera normal Neck: No jugular venous distention, no palpable thyromegaly. Heart: RRR, no S3, no S4. Soft grade 1/6 systolic murmur heard best at the left lower sternal border. No carotid bruits. Respiratory: Clear to auscultation bilaterally. Good respiratory effort. GI: Soft, nontender, bowel sounds normal, no palpable hepatosplenomegaly Extremities: Normal pulses in distal lower extremities. 3+ bilateral lower extremity edema, skin is shiny suggesting chronicity. Neuro: Alert, cooperative with no focal deficit. Psych: Pleasant and cooperative. Skin: No rashes or wounds. CARDIOVASCULAR MEDICINE TESTING: A 12-lead electrocardiogram obtained on 10/08/2017 reveals atrial fibrillation with a rapid ventricular response at 152 bpm. There are diffuse T-wave abnormalities noted. A 12-lead electrocardiogram obtained on 10/12/2017 reveals atrial fibrillation with a rapid ventricular response at 147 bpm. There was one PVC noted. There are nonspecific ST and T-wave changes noted diffusely. Laboratory values obtained on 10/10/2017 revealing a white count of 6.3, hemoglobin 12, hematocrit 39, platelets 218, sodium 142, potassium 4.6, chloride 101, bicarbonate 22, glucose 108, BUN 12, creatinine 1.07, GFR 58, total cholesterol 151, triglycerides 90, HDL 45 and LDL 88. TSH was 1.3, thyroxine T4 was 8.8. T3 uptake was 29. Free thyroxine index was 2.6. Free T3 was 2.8. No magnesium level was obtained. A 2-D echocardiogram performed on 10/24/2017 reveals a left ventricular ejection fraction of 50%. Right ventricular systolic function was normal. There was moderate biatrial enlargement. There was mild mitral regurgitation present. There was moderate tricuspid regurgitation present. There was a trivial pericardial effusion of no hemodynamic consequence. The right ventricular systolic pressure was mildly to moderately elevated at 43 mmHg. There was a possible small patent foramen ovale by color flow interrogation of the atrial septum. A 12-lead electrocardiogram obtained on 10/22/2017 reveals atrial fibrillation with a rapid ventricular response at 111 bpm. There are nonspecific ST and T-wave changes present. Lab work obtained on 10/30/2017 reveals a sodium of 135, potassium 3.4, chloride 88, bicarbonate 26, glucose 101, BUN 32 and creatinine 1.05. GFR was 59. Laboratory values obtained on 11/29/2017 revealed a sodium of 140, potassium 3.4, chloride 97, bicarbonate 26, glucose 113, BUN 25, creatinine 0.97 and a GFR of 65. A 12-lead electrocardiogram obtained on December 05, 2017 reveals atrial fibrillation with a rapid ventricular response at 122 bpm. There is one single PVC noted. There are nonspecific ST and T-wave changes noted. The patient underwent a successful direct current cardioversion on 12/26/2017 utilizing one 200 J synchronized biphasic defibrillation. A 12-lead electrocardiogram on January 30, 2018 reveals sinus bradycardia at 50 bpm. This is an otherwise normal ECG. A 12-lead electrocardiogram on March 06, 2018 reveals sinus bradycardia at 52 bpm. This is an otherwise normal ECG. IMPRESSION: 1. Acute diastolic heart failure (HCC) - ICD9: 428.31, ICD10: I50.31 (primary diagnosis), exacerbated by atrial fibrillation with a rapid ventricular response, we increased the patient's furosemide 40 mg twice a day at her last visit. Left ventricular ejection fraction 50% by echocardiogram on 10/24/2017. Continue furosemide at current dose. Continue potassium supplementation. 2. Paroxysmal atrial fibrillation (HCC) - ICD9: 427.31, ICD10: I48.0, successful cardioversion on December 26, 2017, remains in sinus rhythm, remains on Xarelto, mildly bradycardic. Continue metoprolol ER 100 mg daily for now. 3. Non-rheumatic tricuspid insufficiency, mild to moderate. 4. Non-rheumatic mitral regurgitation, mild - ICD9: 424.0, ICD10: I34.0 5. Obesity, Class III, BMI >= 40 (morbid obesity) E66.01 - ICD9: 278.01, ICD10: E66.01, discussed the need for weight loss. 6. Tobacco use, strongly suggested smoking cessation. Discussed both she and her stopping together. PLAN: Continue metoprolol ER 100 mg daily. Consider decreasing if patient has further bradycardic symptomatic episodes. Continue Xarelto. Continue furosemide. Continue potassium supplement. Low-cholesterol, low-fat diet. Weight loss. Smoking cessation, suggested both she and her stopping together. Follow-up in 6 months or sooner if necessary. A copy of this note will be provided to the requesting physician by way of shared medical record or to the requesting physician via U.S. Mail. This document was generated utilizing [employer]. I have reviewed and verified that the contents of the document are accurate with the exception of minor grammatical, spelling and punctuation errors. CONTACT INFORMATION: Thank you for allowing us to participate in the care of this very pleasant patient. Please free to contact us if we can be of any further assistance. Melissa Hall MD, MERGED WITH [facility] Fredi Gray Department of Cardiovascular Medicine Heart and Vascular [place] [facility] [place] [address] Office: [phone] Normal [facility] Vital Signs Date Time Vital Sign Value Performing Clinician Gael sánchez 09-03-2025 13:35-0400 Body temperature 96.7 [degF] Corey Bee DO Work Phone: [facility] 09-03-2025 13:35-0400 Diastolic blood pressure 72 mm[Hg] Corey Bee DO Work Phone: [facility] 09-03-2025 13:35-0400 Heart rate 77 /min Corey Bee DO Work Phone: [facility] 09-03-2025 13:35-0400 Respiratory rate 18 /min Corey Bee DO Work Phone: [facility] 09-03-2025 13:35-0400 SaO2% (BldA) [Mass fraction] 99 % Corey Bee DO Work Phone: [facility] 09-03-2025 13:35-0400 Systolic blood pressure 122 mm[Hg] Corey Bee DO Work Phone: [facility] 04-07-2025 10:54-0400 Blood Pressure Location Juni Ga [facility] 04-07-2025 10:54-0400 Diastolic blood pressure 65 mm[Hg] Juni Ga [facility] 04-07-2025 10:54-0400 Heart rate 95 /min Juni aG [facility] 04-07-2025 10:54-0400 Respiratory rate 18 /min Juni Ga [facility] 04-07-2025 10:54-0400 SaO2% (BldA) [Mass fraction] 96 % Juni Ga [facility] 04-07-2025 10:54-0400 Systolic blood pressure 98 mm[Hg] Juni Ga [facility] 04-06-2025 13:10-0400 Body height 158.75 cm Corey Bee DO Work Phone: [facility] 04-06-2025 13:10-0400 Body mass index (BMI) [Ratio] 49.3 kg/m2 Corey Bee DO Work Phone: [facility] 04-06-2025 13:10-0400 Body weight 124.28 kg Corey Bee DO Work Phone: [facility] 04-06-2025 13:10-0400 Diastolic blood pressure 70 mm[Hg] Corey Bee DO Work Phone: [facility] 04-06-2025 13:10-0400 Heart rate 80 /min Corey Bee DO Work Phone: [facility] 04-06-2025 13:10-0400 Respiratory rate 18 /min Corey Bee DO Work Phone: [facility] 04-06-2025 13:10-0400 SaO2% (BldA) [Mass fraction] 98 % Corey Bee DO Work Phone: [facility] 04-06-2025 13:10-0400 Systolic blood pressure 122 mm[Hg] Corey Bee DO Work Phone: [facility] 10-31-2024 11:41-0500 Diastolic blood pressure 72 mm[Hg] Sundar Kirnus [facility] 10-31-2024 11:41-0500 Heart rate 47 /min Sundar Kirnus [facility] 10-31-2024 11:41-0500 Respiratory rate 16 /min Sundar Kirnus [facility] 10-31-2024 11:41-0500 SaO2% (BldA) [Mass fraction] 94 % Sundar Kirnus [facility] 10-31-2024 11:41-0500 Systolic blood pressure 112 mm[Hg] Sundar Kirnus [facility] 04-25-2024 14:21-0400 Blood Pressure Location Henrique Milliganerson [facility] 04-25-2024 14:21-0400 Diastolic blood pressure 72 mm[Hg] Henrique Legerofferson [facility] 04-25-2024 14:21-0400 Heart rate 74 /min Henrique Milliganerson [facility] 04-25-2024 14:21-0400 SaO2% (BldA) [Mass fraction] 93 % Henrique Santy [facility] 04-25-2024 14:21-0400 Systolic blood pressure 114 mm[Hg] Henrique Santy [facility] 03-07-2024 11:16-0400 Body height 158.75 cm DO Corey Bee Work Phone: [facility] 03-07-2024 11:16-0400 Body mass index (BMI) [Ratio] 52.7 kg/m2 DO Corey Bee Work Phone: [facility] 03-07-2024 11:16-0400 Body temperature 97.3 [degF] DO Corey Bee Work Phone: [facility] 03-07-2024 11:16-0400 Body weight 132.9 kg DO Corey Bee Work Phone: [facility] 03-07-2024 11:16-0400 Diastolic blood pressure 80 mm[Hg] DO Corey Bee Work Phone: [facility] 03-07-2024 11:16-0400 Heart rate 96 /min DO Corey Bee Work Phone: [facility] 03-07-2024 11:16-0400 Respiratory rate 20 /min DO Corey Bee Work Phone: [facility] 03-07-2024 11:16-0400 SaO2% (BldA) [Mass fraction] 95 % DO Corey Bee Work Phone: [facility] 03-07-2024 11:16-0400 Systolic blood pressure 118 mm[Hg] DO Corey Bee Work Phone: [facility] 10-26-2023 13:47-0500 Blood Pressure Location Yadira ALFORD [facility] 10-26-2023 13:47-0500 Diastolic blood pressure 78 mm[Hg] Yadira ALFORD [facility] 10-26-2023 13:47-0500 Heart rate 79 /min Yadira ALFORD [facility] 10-26-2023 13:47-0500 SaO2% (BldA) [Mass fraction] 98 % Yadira ALFORD [facility] 10-26-2023 13:47-0500 Systolic blood pressure 125 mm[Hg] Yadira ALFORD [facility] 09-07-2023 11:30-0400 Body height 158.75 cm Corey Bee Other [employer] Other 09-07-2023 11:30-0400 Body mass index (BMI) [Ratio] 52.73 kg/m2 Corey Bee Other [employer] Other 09-07-2023 11:30-0400 Body temperature 96.1 [degF] Corey Bee Other [employer] Other 09-07-2023 11:30-0400 Body weight 132.9 kg Corey Bee Other [employer] Other 09-07-2023 11:30-0400 Diastolic blood pressure 70 mm[Hg] Corey Bee Other [employer] Other 09-07-2023 11:30-0400 Respiratory rate 20 /min Corey Bee Other [employer] Other 09-07-2023 11:30-0400 SaO2% (BldA) [Mass fraction] 95 % Corey Bee Other [employer] Other 09-07-2023 11:30-0400 Systolic blood pressure 114 mm[Hg] Corey Bee Other [employer] Other 02-23-2023 10:45-0400 Body height 158.75 cm Corey Bee Other [employer] Other 02-23-2023 10:45-0400 Body mass index (BMI) [Ratio] 53.81 kg/m2 Corey Bee Other [employer] Other 02-23-2023 10:45-0400 Body temperature 96.9 [degF] Corey Bee Other [employer] Other 02-23-2023 10:45-0400 Body weight 135.63 kg Corey Bee Other [employer] Other 02-23-2023 10:45-0400 Diastolic blood pressure 68 mm[Hg] Corey Bee Other [employer] Other 02-23-2023 10:45-0400 Respiratory rate 22 /min Corey Bee Other [employer] Other 02-23-2023 10:45-0400 SaO2% (BldA) [Mass fraction] 95 % Corey Bee Other [employer] Other 02-23-2023 10:45-0400 Systolic blood pressure 98 mm[Hg] Corey Bee Other [employer] Other 10-18-2022 11:56-0500 Blood Pressure Location Yadira ALFORD [facility] 10-18-2022 11:56-0500 Diastolic blood pressure 65 mm[Hg] Yadira ALFORD [facility] 10-18-2022 11:56-0500 Heart rate 86 /min Yadira ALFORD [facility] 10-18-2022 11:56-0500 SaO2% (BldA) [Mass fraction] 96 % Yadira ALFORD [facility] 10-18-2022 11:56-0500 Systolic blood pressure 96 mm[Hg] Yadira ALFORD [facility] 08-18-2022 10:00-0400 Body height 158.75 cm Corey Bee Other [employer] Other 08-18-2022 10:00-0400 Body mass index (BMI) [Ratio] 55.25 kg/m2 Corey Bee Other [employer] Other 08-18-2022 10:00-0400 Body temperature 97 [degF] Corey Bee Other [employer] Other 08-18-2022 10:00-0400 Body weight 139.26 kg Corey Bee Other [employer] Other 08-18-2022 10:00-0400 Diastolic blood pressure 82 mm[Hg] Corey Bee Other [employer] Other 08-18-2022 10:00-0400 Respiratory rate 22 /min Corey Bee Other [employer] Other 08-18-2022 10:00-0400 SaO2% (BldA) [Mass fraction] 98 % Corey Gamboa Other [employer] [facility] [employer] Other 08-18-2022 10:00-0400 Systolic blood pressure 128 mm[Hg] Corey Gamboa Other [employer] [facility] [employer] Other 04-14-2022 13:29-0400 Blood Pressure Location Henrique Madera [facility] 04-14-2022 13:29-0400 Diastolic blood pressure 67 mm[Hg] Henrique Madera [facility] 04-14-2022 13:29-0400 Heart rate 65 /min Henrique Madera [facility] 04-14-2022 13:29-0400 Respiratory rate 18 /min Henrique Madera [facility] 04-14-2022 13:29-0400 SaO2% (BldA) [Mass fraction] 96 % Henrique Madera [facility] 04-14-2022 13:29-0400 Systolic blood pressure 103 mm[Hg] Henrique Madera [facility] 05-27-2021 09:12-0400 Diastolic blood pressure 85 mm[Hg] Jayda Paezi [facility] 05-27-2021 09:12-0400 Heart rate 62 /min Jayda Justi [facility] 05-27-2021 09:12-0400 Systolic blood pressure 123 mm[Hg] Jayda Justi [facility] Encounters Encounter Date Encounter Type Care Provider Facility Start: 09-04-2025 End: 09-04-2025 ambulatory Juni Ga Facility:[facility] Start: 09-03-2025 End: 09-03-2025 ambulatory Corey Gamboa DO Work Phone: [facility] Work Phone: Start: 09-03-2025 End: 09-03-2025 Patient encounter procedure Corey Gamboa M DO -[facility] Work Phone: Start: 04-07-2025 End: 04-07-2025 ambulatory Juni Ga Facility:[facility] Start: 04-07-2025 End: 04-07-2025 Patient encounter procedure Juni Ga [facility] Start: 04-06-2025 End: 04-06-2025 ambulatory Corey Gamboa DO Work Phone: [facility] Work Phone: Start: 04-06-2025 End: 04-06-2025 Patient encounter procedure Corey Gamboa DO Work Phone: [facility] Work Phone: Start: 03-24-2025 Registered Recurring Corey cooper DO Work Phone: [facility] Start: 03-24-2025 ambulatory Jarocho Sampson acility:[facility] Start: 02-27-2025 Non-patient / Non-visit Coreymilton Gamboa DO Work Phone: [facility] Work Phone: Start: 12-02-2024 End: 07-02-2025 ambulatory ACNP Jayda Justi Facility:[facility] Start: 10-31-2024 End: 10-31-2024 ambulatory XXXX NONE Facility:[facility] Start: 10-31-2024 End: 10-31-2024 Patient encounter procedure Sundar Salazar [facility] Start: 04-25-2024 End: 04-25-2024 ambulatory Henrique Madera Facility:[facility] Start: 04-25-2024 End: 04-25-2024 Patient encounter procedure Henrique Madera [facility] Start: 03-17-2024 End: 03-17-2024 ambulatory DO Corey M. Bee Work Phone: [facility] Work Phone: Start: 03-17-2024 End: 03-17-2024 Patient encounter procedure DO Corey Bee Work Phone: [facility] [address] Work Phone: Start: 03-13-2024 Non-patient / Non-visit DO Corey Bee Work Phone: [facility] Work Phone: Start: 03-07-2024 End: 03-07-2024 Patient encounter procedure DO Corey Bee Work Phone: [facility] Work Phone: Start: 01-23-2024 Non-patient / Non-visit DO Corey Bee Work Phone: [facility] Work Phone: Start: 01-08-2024 Registered Recurring DO Corey R uggles Work Phone: [facility] Start: 11-27-2023 ambulatory Jayda Perez Facility: [facility] Start: 11-27-2023 End: 11-28-2024 Recurring Jayda Paezedi [facility] Start: 10-26-2023 End: 10-26-2023 Patient encounter procedure Yadira ALFORD [facility] Start: 09-07-2023 End: 09-07-2023 ambulatory Corey Bee Other [employer] Other Start: 09-07-2023 Office outpatient visit 25 minutes Corey Bee [facility] Start: 09-07-2023 Telephone encounter Corey Bee [facility] Start: 06-05-2023 End: 06-05-2023 ambulatory Corey Bee Other [employer] Other Start: 06-05-2023 Telephone encounter Corey Bee [facility] Start: 03-19-2023 End: 03-19-2023 ambulatory Corey Bee Other [employer] Other Start: 03-19-2023 Telephone encounter Corey Bee [facility] Start: 03-01-[address] COREY M BEE Facil ity:[facility] Start: 02-23-2023 End: 02-23-2023 ambulatory Corey Bee Other [employer] Other Start: 02-23-2023 Office outpatient visit 25 minutes Corey Bee [facility] Start: 12-06-2022 End: 12-06-2022 ambulatory Corey Bee Other [employer] Other Start: 12-06-2022 Telephone encounter Corey Bee [facility] Start: 12-04-2022 End: 12-04-2022 ambulatory Corey Bee Other [employer] Other Start: 12-04-2022 Telephone encounter Corey Bee [facility] Start: 12-01-2022 End: 02-07-2024 Recurring Jayda Perez [facility] Start: 11-26-2022 End: 12-29-[address] DOCTOR SANTIAGO Facility:[facility] Start: 10-27-2022 End: 11-25-[address] [facility] Start: 10-18-2022 End: 10-18-2022 Patient encounter procedure Yadiramarilyn ALFORD [facility] Start: 09-11-2022 End: 09-11-2022 ambulatory Corey Bee Other [employer] Other Start: 09-11-2022 Telephone encounter Corey Bee [facility] Start: 08-25-2022 End: 08-25-2022 Patient encounter procedure COREY M BEE [facility] Start: 08-18-2022 End: 08-18-2022 ambulatory Corey Bee Other [employer] Other Start: 08-18-2022 Office outpatient visit 25 minutes Corey Bee [facility] Start: 06-06-2022 End: 06-06-2022 ambulatory Corey Bee Other [employer] Other Start: 06-06-2022 Telephone encounter Corey Bee [facility] Start: 04-14-2022 End: 04-14-2022 Patient encounter procedure Henrique Madera [facility] Start: 12-02-2021 End: 08-04-2022 Recurring Jayda Perez [facility] Start: 01-04-2021 End: 09-15-2022 Recurring Jayda Perez [facility] Start: 02-20-2019 End: 02-21-2019 Patient encounter procedure JAME WORLEY [facility] Start: 01-29-2019 End: 01-29-2019 Patient encounter procedure JAME WORLEY [facility] Start: 09-04-2018 End: 09-17-2018 Patient encounter procedure MELISSA HALL [facility] Start: 03-06-2018 End: 03-12-2018 Patient encounter procedure MELISSA HALL [facility] Procedures Date Procedure Procedure Detail Performing Clinician Start: 11-26-2000 Arthroscopy of knee Rya giuseppe Madera Ankle region structu re (body structure) Henrique Madera Repair of musculoten dinous cuff of shoulder Henrique Madera Comment on above: Left Shoulder 2007 Tonsillectomy Henrique pinto Wrist region structu re (body structure) Henrique Madera Plan of Treatment Date Care Activity Detail Author Comprehensive metabo lic 2000 panel - Serum or Plasma [facility] enter [facility] Immunizations Immunization Date Immunization Notes Care Provider Fa cility 08-12-2020 influenza, injectable, quadrivalent, preservative free DO Corey Bee Work Phone: [facility] 08-12-2020 influenza, injectable, quadrivalent, contains preservative Corey Bee Other [employer] Other 11-20-2012 influenza, seasonal, injectable Henrique Madera [facility] Comment on above: Early/Late Reason: W an to [employer] Times 11-20-2012 pneumococcal polysaccharide vaccine, 23 valent Henrique Madera [facility] Comment on above: Early/Late Reason: W an to [employer] NEGATED: Highlighted row has not occurred!10-26-20 23 influenza virus vaccine, unspecified formulation Yadira ALFORD [facility] NEGATED: Highlighted row has not occurred!02-24-20 23 influenza, injectable, quadrivalent, contains preservative Patient Objection Corey Bee Other [employer] Other NEGATED: Highlighted row has not occurred!02-12-20 20 influenza, injectable, quadrivalent, contains preservative Patient Objection Corey Bee Other [employer] Other NEGATED: Highlighted row has not occurred!10-09-20 18 influenza, injectable, quadrivalent, contains preservative Patient Objection Corey Bee Other [employer] Other NEGATED: Highlighted row has not occurred!10-22-20 17 influenza, seasonal, injectable Henrique Madera [facility] Comment on above: Result Comment: Jillian ent refused flu shot at this time. Patient states she would like to wait till her follow up appointment with Dr. Gamboa. Payers Date Payer Category Payer Private Health Insurance [facility] [id number] [id number] Self-pay [id number] 1960 Unknown [id number] 2.16.84 [id number] 1960 Unknown [id number] 2.16.84 [id number] 1960 Unknown [id number] 2.16.84 [id number] 1960 Unknown [id number] 2.16.8 [id number] 1960 Unknown [id number] 2.16.8 [id number] 1960 Unknown [id number] 2.16.8 [id number] 1960 Unknown [id number] 2.16.8 [id number] 1960 Unknown [id number] 2.16.8 [id number] 1960 Unknown [id number] 2.16.8 [id number] 1960 Unknown [id number] 2.16.8 [id number] 1959 Private Health Insurance [id number] Unknown [id number] Unknown [id number] 2.16.8 [id number] Social History Date Type Detail [facility] Start: 1960 Sex Assigned At Female [facility] Start: 07-16-2014 Tobacco smoking status Smokes tobacco daily (finding) [facility] Comment on above: 1/2ppd Sex Assigned At Female [facility] Start: 10-26-2023 End: 04-06-2025 Tobacco smoking status Ex-smoker (finding) [facility] Tobacco smoking status Never [facility] Sexual Orientation [facility] Start: 03-09-2010 End: 04-06-2025 Sex Female (finding) [facility] Functional Status Date Assessment Result Facility 04-07-2025 Functional Status N/A [facility] 10-31-2024 Functional Status N/A [facility] 04-25-2024 Functional Status No [facility] 10-26-2023 Functional Status No [facility] 10-18-2022 Functional Status No [facility] Clinical Notes 05-26-2010 to 12-02-2024 Note Date & Type Note Facility 12-02-2024 Note History and Physical Patient: CLAUDIA KHOURY Age: 64 years Sex: Female : 1960 Associated Diagnoses: None Author: Jayda Lo Patient is seen today for their interval coumadin assessment in the [facility]in [facility]. She has a pmhx of afib, diastolic heart failure, HTN, non rheumatic tricuspid insufficiency, GERD, current smoker. She is tolerating Coumadin well, denies any change in diet or change in medications. She continues to smoke. Pt is followed by [facility] cardiology. Denies any melena, hematochezia, hematuria, gingival bleeding, hematoma's or prolonged epistaxis. We discussed the patient's coumadin therapy today. --Indication: afib --Current coumadin pill being used: as above --Current dose of coumadin: as above --Side effects / complications of coumadin: Denies any problems with the use of coumadin -- denies any gum bleeds, nose bleeds, easy bruising, or other sequelae of coumadin toxicity. --Medication changes since last visit: nonr --OTC meds / herbal meds used since the last visit: none --Any change in diet since last visits, including vitamin-K rich foods: none --Compliance: no missed doses We also reviewed the patient's risk factors for bleeding using the Outpatient Bleeding Risk Index: 1. 65yo or older: no 2. Hx of GI tract bleeding: no 3. Hx of stroke: no 4. Serious co-morbid conditions (recent AK, anemia with Hct <30%, CRI with SCr > 1.5, DM): no Score = 0/4 Risk (low = 0, mod = 1-2, high = 3-4) . Health Status Allergies: Allergic Reactions (Selected) No Known Allergies, Allergies (1) Active Severity Reaction No Known Allergies None Documented Current medications: (Selected) Prescriptions Prescribed Adult Blood Pressure Machine with Large Bicep Cuff: Adult Blood Pressure Machine with Large Bicep Cuff, See Instructions, 1 EA, 0, Adult BP machine and large bicep cuff Follow daily BP readings and keep log, [facility], Supply, 160, cm, 12/23/19 11:18:00 EST, Height/Length Measured, 140, kg... Coumadin 5 mg Tab: 2.5 mg = 0.5 tab(s), Oral, Daily, take 2.5 mg daily, # 90 tab(s), Refills(s) 1, Pharmacy: [facility], 160, cm, 11/30/20 14:49:00 EST, Height/Length Dosing, 141, kg, 11/30/20 14:49:00 EST, Weight Dosing Coumadin 5 mg Tab: See Instructions, take 2.5mg everyday, # 90 tab(s), Refills(s) 2, Pharmacy: [facility], 160, cm, 10/26/23 13:51:00 EST, Height/Length Dosing, 134, kg, 10/26/23 13:51:00 EST, Weight Dosing Coumadin 5 mg Tab: See Instructions, take 5 mg on sun and sun. take 2.5mg all other days, # 180 tab(s), Refills(s) 1, Pharmacy: [facility], 160, cm, 04/11/23 15:37:00 EDT, Height/Length Dosing, 137, kg, 10/18/22 12:02:00 EST, Weight Dosing Coumadin 5 mg Tab: See Instructions, take 5mg sun and sun. take 2.5mg all other days., # 180 tab(s), Refills(s) 2, Pharmacy: [facility], 160, cm, 04/11/23 15:37:00 EDT, Height/Length Dosing, 137, kg, 10/18/22 12:02:00 EST, Weight Dosing diltiazem CD 120 mg/24 hours Cap-ER: 120 mg = 1 cap(s), Oral, Daily, # 90 cap(s), Refills(s) 3, Pharmacy: [facility], 160, cm, 10/26/23 13:51:00 EST, Height/Length Dosing, 134, kg, 10/26/23 13:51:00 EST, Weight Dosing metoprolol succinate 100 mg ER Tab: 100 mg = 1 tab(s), Oral, BID, # 180 tab(s), Refills(s) 3, Pharmacy: [facility], 160, cm, 04/25/24 14:23:00 EDT, Height/Length Dosing, 134, kg, 10/26/23 13:51:00 EST, Weight Dosing spironolactone 25 mg Tab: See Instructions, 0.5 tab by mouth daily, # 45 tab(s), Refills(s) 3, Pharmacy: [facility], 160, cm, 04/25/24 14:23:00 EDT, Height/Length Dosing, 134, kg, 10/26/23 13:51:00 EST, Weight Dosing Documented Medications Documented Coumadin: Flonase 0.05 mg/inh nasal spray: 2 spray(s), Nasal, Daily, Refill(s) 0 Lexapro 10 mg Tab: 10 mg = 1 tab(s), Oral, Daily Symbicort 160/4.5 inhalation aerosol with adapter: 2 puff(s), Inhalation, BID, Refill(s) 0 Ventolin HFA 90 mcg/inh Aerosol: See Instructions, Refill(s) 0, 1 puff(s) Inhalation furosemide 40 mg Tab: Refills(s) 0 hydrochlorothiazide 12.5 mg Cap: 12.5 mg = 1 cap(s), Oral, Daily, Refills(s) 0 omeprazole 40 mg Cap-DR: 40 mg = 1 cap(s), Oral, Daily, # 30 cap(s), Refills(s) 0 potassium chloride 20 mEq ER Tab: 20 mEq = 1 tab(s), Oral, BID, Refills(s) 0 spironolactone 25 mg Tab: See Instructions, 0.5 tab by mouth daily, # 45 tab(s), Refills(s) 1, Home Medications (18) Active Adult Blood Pressure Machine with Large Bicep Cuff See Instructions Coumadin Coumadin 5 mg Tab 2.5 mg = 0.5 tab(s), Oral, Daily Coumadin 5 mg Tab See Instructions Coumadin 5 mg Tab See Instructions Coumadin 5 mg Tab See Instructions diltiazem CD 120 mg/24 hours Cap-ER 120 mg = 1 cap(s), Oral, Daily Flonase 0.05 mg/inh nasal spray 2 spray(s), Nasal, Daily furosemide 40 mg Tab hydrochlorothiazide 12.5 mg Cap 12.5 m (more content not included)... [facility] Comment on above: Result Comment: Elec tronically Signed By: Jayda Lo\.br\Date and Time Signed: 12/02/24 11:05 EST 02-19-2024 Evaluation + Plan note Extrac rosalba from: Title:[facility] H&P Author:Jayda Lo Date: 02/19/24 Impression and Plan Patient is seen today for their interval coumadin assessment in the Coumadin Clinic. She has a pmhx of afib, diastolic heart failure, HTN, non rheumatic tricuspid insufficiency, GERD, current smoker. She is tolerating Coumadin well, denies any change in diet or change in medications. She continues to smoke. Pt is followed by [facility] cardiology. Denies any melena, hematochezia, hematuria, gingival bleeding, hematoma's or prolonged epistaxis. We discussed the patient's coumadin therapy today. --Indication: afib --Current coumadin pill being used: as above --Current dose of coumadin: as above --Side effects / complications of coumadin: Denies any problems with the use of coumadin -- denies any gum bleeds, nose bleeds, easy bruising, or other sequelae of coumadin toxicity. --Medication changes since last visit: nonr --OTC meds / herbal meds used since the last visit: none --Any change in diet since last visits, including vitamin-K rich foods: none --Compliance: no missed doses We also reviewed the patient's risk factors for bleeding using the Outpatient Bleeding Risk Index: 1. 65yo or older: no 2. Hx of GI tract bleeding: no 3. Hx of stroke: no 4. Serious co-morbid conditions (recent AK, anemia with Hct <30%, CRI with SCr > 1.5, DM): no Score = 0/4 Risk (low = 0, mod = 1-2, high = 3-4) Future Appointments Appointment Date:12/02/2024 11:00:00 AM Scheduled Provider: Location:.CARDIO Appointment Type:Anticoagulation Follow Up 15 (FT) [facility] 10-13-2023 Evaluation note* Encounter Date Diagnosis Assessment Notes Treatment Notes Treatment Clinical Notes Aug, Gastroesophageal ref lux disease without esophagitis (ICD-10 - K21.9) [employer] Other 10-13-2023 Evaluation note* Encounter Date Diagnosis Assessment Notes Treatment Notes Treatment Clinical Notes Aug, COPD (chronic obstructive pulmonary disease) with chronic bronchitis (ICD-10 - J44.9) Continue with current medication. Really nothing further to change today. Aug, Atrial fibrillation, unspecified type (ICD-10 - I48.91) No change today. Certainly continue to follow-up with cardiology. There is some question about doing another cardioversion. I certainly will leave this in the capable hands of cardiology. Aug, Acute nonintractable headache, unspecified headache type (ICD-10 - R51.9) Discussed with patient that she should call if this persists. Certainly there are medications that we could trial, both for headaches but also for potential migraines. She voices agreement and understanding. [employer] Other 07-11-2023 Evaluation note* Encounter Date Diagnosis Assessment Notes Treatment Notes Treatment Clinical Notes May, Gastroesophageal ref lux disease without esophagitis (ICD-10 - K21.9) [employer] Other 06-09-2023 Evaluation + Plan noteExtracted from: Title:- [facility] H&P Author:Jayda Lo Date :05/04/23 Impression and Plan Patient is seen today for their interval coumadin assessment in the Coumadin Clinic. She has a pmhx of afib, diastolic heart failure, HTN, non rheumatic tricuspid insufficiency, GERD, current smoker. She is tolerating Coumadin well, denies any change in diet or change in medications. She continues to smoke. Pt is followed by [facility] cardiology. Denies any melena, hematochezia, hematuria, gingival bleeding, hematoma's or prolonged epistaxis. We discussed the patient's coumadin therapy today. --Indication: afib --Current coumadin pill being used: as above --Current dose of coumadin: as above --Side effects / complications of coumadin: Denies any problems with the use of coumadin -- denies any gum bleeds, nose bleeds, easy bruising, or other sequelae of coumadin toxicity. --Medication changes since last visit: nonr --OTC meds / herbal meds used since the last visit: none --Any change in diet since last visits, including vitamin-K rich foods: none --Compliance: no missed doses We also reviewed the patient's risk factors for bleeding using the Outpatient Bleeding Risk Index: 1. 65yo or older: no 2. Hx of GI tract bleeding: no 3. Hx of stroke: no 4. Serious co-morbid conditions (recent AK, anemia with Hct <30%, CRI with SCr > 1.5, DM): no Score = 0/4 Risk (low = 0, mod = 1-2, high = 3-4) Future Appointments Appointment Date:02/19/2024 10:45:00 AM Scheduled Provider: [facility] Type:Anticoagulation Follow Up 15 (FT) Appointment Date:04/25/2024 01:45:00 PM Scheduled Provider:Henrique Madera MD Location[facility] [place] Appointment Type:Cardiology Follow Up (FT) [facility]03-31-2023 Evaluation note* Encounter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
[2025-09-10 12:26] LABS: Anion Gap 13.6; Blood Urea Nitrogen 21.0 mg/dL (7.0-18.0); Calcium 9.5 mg/dL (8.5-10.1); Carbon Dioxide 29.1 mmol/L (21.0-32.0); Chloride 101 mmol/L (98-107); Estimated GFR (African America 53 (>=60 mL/min/1.73m^2); Estimated GFR (Non-African Ame 43 (>=60 mL/min/1.73m^2); Glucose 98 mg/dL (74-106); Potassium 3.7 mmol/L (3.5-5.1); Sodium 140 mmol/L (136-145)
== END 2025-09-10 11:04 | disposition home or self-care (01) ==
LOC: LAB 11:07
PROVIDERS: PCP Family Medicine; Visit Provider Physician Assistant
DX: I50.32 Chronic diastolic (congestive) heart failure (principal); I36.1 Nonrheumatic tricuspid (valve) insufficiency; I48.19 Other persistent atrial fibrillation
CPT/HCPCS: 36415; 80048